=== PATIENT | female | born 1970 | race Caucasian/White ===

== ENCOUNTER 2020-04-02 13:50 | Outpatient (REF) | payer BC, SELFPAY ==
[2020-04-02 17:18] LABS: Anion Gap 12.3 mmol/L (3-11); BUN 14 mg/dL (7-18); CO2 24.7 mmol/L (21.0-32.0); CREATININE 0.64 mg/dL (0.55-1.02); Calcium 9.5 mg/dL (8.5-10.1); Calculated LDL 114 mg/dL (<100); Chloride 105 mmol/L (98-107); Cholesterol 178 mg/dL (<200); Glucose 87 mg/dL (74-106); HDL Cholesterol 51 mg/dL (40-60); Potassium 4.2 mmol/L (3.5-5.1); Sodium 142 mmol/L (136-145); Triglyceride 67 mg/dL (<150)
[2020-04-02 17:49] LABS: Hemoglobin A1C 5.3 % (3.8-5.6)
== END 2020-04-02 14:10 ==
LOC: NCHCN 13:50
PROVIDERS: PCP Nurse Practitioner Family; Visit Provider Family Medicine
DX: Z00.00 Encounter for general adult medical examination without abnormal findings (principal); Z13.1 Encounter for screening for diabetes mellitus; Z13.220 Encounter for screening for lipoid disorders; Z13.228 Encounter for screening for other metabolic disorders
CPT/HCPCS: 80048; 80061; 83036

== ENCOUNTER 2020-04-21 01:06 | Outpatient (CLI) | payer BC, SELFPAY ==
--- NOTE | 2020-04-21 06:30 | DI.CT_ITS ---
EXAM: CT ABDOMEN W CLINICAL HISTORY: Left upper quadrant pain,R10.12 TECHNIQUE: COMPARISON: CT ABD PELVIS WITH CONTRAST from 06/26/2012 FINDINGS: CT examination of the abdomen was performed with intravenous infusion of 100 cc of Omnipaque 350 and ingestion of dilute barium. Images obtained through the lung bases are unremarkable. There is incidental 23 millimeter left lobe hepatic cyst. Otherwise liver is normal appearance. Spl een appears normal. Small hiatal hernia noted. Abdominal aorta is of normal diameter and major visceral branches appear intact. No evidence of lymphadenopathy. No significant upper abdominal wall hernia, tiny fat containing umbi lical hernia noted. Appendix is partially visualized and appears normal. There is apparent wall thickening of the proxim al descending colon raising the possibility of colitis. Distal descending colon not included on the imaging field. Adrenals appear normal bilaterally. There is an extrarenal pelvis on the right. No hydronephrosis. No nephrolithiasis. No renal mass. IMPRESSION: Wall thickening of descending colon, concentric, suggestive of colitis. Descending colon not entirel y included on imaging field. RADIATION DOSE DELIVERED: 475.07mGy.cm Total DLP
[2020-04-21] MEDS: Omnipaque 350 MG/ML 50 ML BTL PO (07:51)
[2020-04-21] MEDS: Breeza Beverage 473 ML BTL PO (07:51)
[2020-04-21] MEDS: Omnipaque 350 MG/ML 100 ML BTL IV (09:20)
== END 2020-04-21 01:26 ==
PROVIDERS: PCP Family Medicine; Visit Provider Surgery
DX: R10.2 Pelvic and perineal pain (principal); K63.89 Other specified diseases of intestine
CPT/HCPCS: 74160; J3490; Q9967

== ENCOUNTER 2020-04-28 04:38 | Outpatient (CLI) | payer BC, SELFPAY ==
--- NOTE | 2020-04-28 07:50 | DI.MAMMO_ITS ---
EXAM: MG MAMMO SCREENING CLINICAL HISTORY: SCREENING, Z12.39 TECHNIQUE: Bilateral full field digital CC and MLO mammographic images were obtained with 3D tomosyn thesis and utilizing computer aided detection (CAD). COMPARISON: None. FINDINGS: Masses/Architectural Distortion: Scattered nodular densities are seen in the breasts. No suspicious masses or areas of architectural distortion are noted. Microcalcifications: No suspicious pleomorphic-type are seen. Skin Thickening/Nipple Retraction: None. IMPRESSION: 1. No specific features of malignancy noted. 2. Unless there is more urgent need, screening mammography is recommended, as per [employer] [place] [employer] guidelines. BI-RADS Category 1 - Negative Breast Density - Category C - Heterogeneously dense The mammogram demonstrates the patient's breast tissue is dense. Dense breast tissue is very common a nd is not abnormal but dense breast tissue can make it harder to find cancer on a mammogram. Also, de nse breast tissue may increase their breast cancer risk. This information about the result of the [facility] [place] mogram report was provided to the patient to raise their awareness. Use this report when you speak wi th the patient about their risks for breast cancer, which includes their family history. At that time , you may recommend for more screening tests (Ultrasound or MRI) as they might be useful based on the ir risk. A negative radiographic report should not delay biopsy if a dominant or clinically suspicious mass is present. Up to ten percent of cancers are not identified on mammography. A negative report may reinforce clinical impression. Adenosis and dense breasts may obscure an underlying neoplasm. False positive reports average 6 to 10%. Patient will receive a letter notifying them of these results.
== END 2020-04-28 04:58 ==
PROVIDERS: PCP Family Medicine; Visit Provider Family Medicine
DX: Z12.31 Encounter for screening mammogram for malignant neoplasm of breast (principal); R92.2 Inconclusive mammogram
CPT/HCPCS: 77063; 77067

== ENCOUNTER 2020-05-11 08:38 | Day surgery (SDC) | payer BC, SELFPAY ==
[2020-05-11 08:58] VITALS: BP 106/70; PULSE 72; RESP 20; TEMP 36.2; O2SAT 98
[2020-05-11] MEDS: Lactated Ringers 1,000 ML 80 ML IV (09:20)
[2020-05-11] MEDS: Sodium Citrate 30 ML CUP PO (10:21)
--- NOTE | 2020-05-11 10:21 | W.PM.HP.N ---
Date of service: 05/11/20 Time of Service: 10:22 Assessment and Plan Assessment and plan (1) LUQ pain: Status: Acute (2) Abnormal CT of the abdomen: Status: Acute Assessment and plan: I advised colonoscopy. The procedure was described including the risks of perforation with need for surgery or bleeding. Patient agrees to proceed. History of Present Illness Narrative: 6-7 months ago started to develop pain in LUQ. Worse with coughing/sneezing. Helps to push on the area. Resolves after about 15 minutes. Occurs at least once a day. Does not recall an injury. No nausea, feels bloated with a large meals. Eating does not worsen or improve the pain. No bloody or black stools. No diarrhea or constipation. No FH colon cancer. C section only abdominal surgery. EGD in 2016 showed gastritis/reflux esophagitis. Abdominal US in 2016 normal. No prior colonoscopy. CT scan showed thickening in the descending colon. Review of Systems All systems reviewed & are unremarkable except as noted in HPI and below PFSH Medical History Abdominal wall pain DJD (degenerative joint disease) of cervical spine GERD (gastroesophageal reflux disease) Hidradenitis History of nephrolithiasis pt. denies this Osteoarthritis Sebaceous cyst Tobacco use Surgical History section EGD - IV Sedation (05/15/16) History of vein stripping bilat legs Social History Smoking/Tobacco Use Status: Current every day Tobacco Type: cigarettes Tobacco: How many years used: 30 Alcohol Intake: current Alcohol Intake frequency: holidays/special occasions only Drug use: Never Substance use type: does not use Do you feel safe at home: Yes Do you feel safe in your relationship?: Yes Meds Home Medications and Allergies Home Medications Medication Instructions Recorded Confirmed Type clindamycin phosphate 1 % topical 1 applic TP BID 04/12/20 05/11/20 History solution esomeprazole magnesium 40 mg 40 mg PO DAILY 04/12/20 05/11/20 History capsule,delayed release famotidine 20 mg tablet 20 mg PO BID 04/12/20 05/11/20 History bisacodyl 5 mg tablet,delayed 5 mg PO ONCE #4 tab 04/22/20 05/11/20 Rx release polyethylene glycol 3350 17 238 g PO ONCE #238 gm 04/22/20 05/11/20 Rx gram/dose oral powder Allergies Allergy/AdvReac Type Severity Reaction Status Date / Time No Known Allergies Allergy Unverified 05/11/20 09:06 Exam Narrative Exam Narrative: No acute distress Lungs CTA Heart RRR Results Last Vital Signs Temp 97.2 F L 05/11/20 08:58 Pulse 72 05/11/20 08:58 Resp 20 05/11/20 08:58 BP 106/70 05/11/20 08:58 Pulse Ox 98 05/11/20 08:58 COVID-19 Screening Have you,or household,traveled outside [place] in last 14 days?: No Had IN PERSON contact w/suspected or confirmed C-19 person: No
--- NOTE | 2020-05-11 10:31 | W.PM.DSUDISC ---
Discharge Plan Disposition Patient Disposition: HOME Condition: Good Discharge Details Reason For Visit: Colonoscopy Attending Provider: Yarely Dyson Primary Care Provider: Isreal Chavarria Home Meds and New Rx's Prescriptions: Continued famotidine 20 mg tablet 20 mg PO BID RF: 0 clindamycin phosphate 1 % solution 1 applic TP BID RF: 0 esomeprazole magnesium 40 mg capsule,delayed release(DR/EC) 40 mg PO DAILY RF: 0 Discontinued polyethylene glycol 3350 17 gram/dose powder 238 g PO ONCE Qty: 238 RF: 0 bisacodyl [Dulcolax (bisacodyl)] 5 mg tablet,delayed release (DR/EC) 5 mg PO ONCE Qty: 4 RF: 0 Discharge Instructions Additional Instructions: Findings: Two tiny polyp were removed from the colon. My office will send a letter with biopsy results. No inflammation was seen in the colon but random biopsies were done. There is mild discoloration of the colon due to laxative use called melanosis coli. This is not something that needs treatment. Follow up: If the biopsy shows adenomatous polyps, you may need a colonoscopy in 5-7 years. Please call if you develop: fevers >101.5 Nausea or Vomiting Abdominal pain that is not transient DAY SURGERY UNIT POST COLONOSCOPY INSTRUCTIONS 1. Because there will be medication in your system for the next 24 hours, you may feel a little sleepy. Your coordination will be affected. Therefore: a. Do not drive or operate dangerous equipment for 24 hours. b. Do not drink alcohol beverages for 24 hours (not even beer). c. Plan to go home and rest for the day. 2. Generally there are no restrictions on your activity after a day or so has gone by, but you may feel a bit fatigued for a few days. 3 After you arrive home you may have a light meal and return to a normal diet as you can tolerate it without feeling sick to your stomach. 4. After surgery, you may feel pain or discomfort. This should be only transient, but if it persists please contact your doctor. 5. If there are any questions regarding the findings of your procedure, please feel free to contact your doctor. 6. If you are unable to contact your doctor with a problem, contact the hospital at [phone]. 7. Continue all your regular medications unless directed otherwise. I understand the above instructions and have no questions. Signature of Patient or Responsible Adult Escort Date/Time Name of Responsible Adult Escort Signature of Nurse Date/Time Activity:: Activity as Tolerated Diet:: As Tolerated Discharge Orders Discharge Orders: Discharge Order (Routine); Ordered 05/11/20 Ordered By: Yarely Dyson DS: Diagnosis Discharge Diagnosis (1) Polyp of ascending colon: Status: Acute (2) Melanosis coli: Status: Acute
--- NOTE | 2020-05-11 10:52 | BOWEL_PTH ---
PATIENT: Alexa Pierre LOC: [facility] U#:[id number] AGE/SX: 49/F ROOM: RE05/11/[address]: Yarely Dyson MD : [id number] BED: DIS: 05/11/2020 SPEC #: [id number] RECD: 05/11/20 12:42 STATUS: MACY REQ #: [id number] MARVIN: 05/11/20 10:[address]: Yarely Dyson DEPT: Surgical Specimen RECD BY: Tasia Slaughter ENTERED: 05/11/20 12:43 SP TYPE: Bowel OTHR DR: Isreal Chavarria Tissues: 1 - BIOPSY BOWEL 2 - BIOPSY BOWEL Procedures: GROSS AND MICRO LEVEL 4 Comments: [id number]
[2020-05-11 11:46] VITALS: BP 118/73; PULSE 64; RESP 17; TEMP 36.3; O2SAT 100
--- NOTE | 2020-05-11 20:24 | W.COLOREPORT ---
Colonoscopy Report Date of procedure: 05/11/20 Pre-op diagnosis general: Abnormal CT abdomen Post-op diagnosis procedure note: other (Ascending colon polyps, melanosis coli) Procedure: Colonoscopy with cold forceps polypectomy and biopsies Surgeon: Yarely Dyson Indications: This 49 year old woman presented with LUQ pain. CT showed possible thickening of the descending colon. She has not had a prior colonoscopy. No FH colon cancer. Procedure Description: The patient was placed in the left [place] position. Propofol was titrated to sedation. Digital rectal examination revealed no abnormalities. The scope was advanced to the cecum without difficulty. The ileocecal valve and appendiceal orifice were clearly identified. The prep was good. She was noted to have mild melanosis coli. The scope was slowly withdrawn over the course of greater than 6 minutes. Two diminuitive polyps were removed from the ascending colon with the cold forceps and sent together in the same specimen container. No abnormalities were seen in the transverse, descending, sigmoid colon or rectum including on retroflexed view. The descending colon appeared normal. Random biopsies were taken from this region. The patient tolerated the procedure well and was stable to recovery. If the polyp is adenomatous, she will need colonoscopy in 5-7 years.
== END 2020-05-11 12:02 | disposition home or self-care (01) ==
PROVIDERS: PCP Family Medicine; Visit Provider Surgery
PROC: 0DJD8ZZ Inspection of Lower Intestinal Tract, Via Natural or Artificial Opening Endoscopic (ICD-10-PCS; CPT 45378; principal; 2020-05-11 09:45)
DX: R93.5 Abnormal findings on diagnostic imaging of other abdominal regions, including retroperitoneum (principal); R10.12 Left upper quadrant pain; D12.2 Benign neoplasm of ascending colon
CPT/HCPCS: 45380; 88305; NC

== ENCOUNTER 2020-09-07 14:26 | Outpatient (CLI) | payer OTHER, BC, SELFPAY ==
--- NOTE | 2020-09-07 10:52 | DI.RAD_ITS ---
EXAM: XR KNEE RT 3V AP,LAT,QUANG CLINICAL HISTORY: RT KNEE PAIN, M25.561. TECHNIQUE: 2D digital imaging was performed. COMPARISON: CR LEFT KNEE 4+ VIEWS from 10/22/2012 FINDINGS: BONES: No acute fracture is present. No bony destructive lesion is seen. JOINTS: The knee is normally aligned. No joint effusion is seen. SOFT TISSUE: Venous varicosities. IMPRESSION: Unremarkable radiographs of the right knee. DATA REPOSITORY: RADIATION DOSE DELIVERED:
== END 2020-09-07 14:46 ==
PROVIDERS: PCP Family Medicine; Visit Provider Family Medicine
DX: M25.561 Pain in right knee (principal)
CPT/HCPCS: 73562

== ENCOUNTER 2020-09-30 00:32 | Outpatient (CLI) | payer OTHER, BC, SELFPAY ==
--- NOTE | 2020-09-30 | DI.MRI_ITS ---
EXAM: MR LOWER JOINT RT WO CLINICAL HISTORY: RT KNEE PAIN, M25.561,LIMITED RANGE OF MOTION,S/P FALL,ASYMMETRIC LAXITY,?. TECHNIQUE: Multiplanar multisequence MRI was performed. COMPARISON: CR XR KNEE RT 3V AP,LAT,QUANG from 09/07/2020 FINDINGS: The examination is limited due to patient motion artifact. BONES: There is no fracture or contusion pattern. JOINTS: Articular cartilage is unremarkable. There is a moderate joint effusion. TENDONS: Extensor mechanism: Unremarkable. Medial retinaculum: Unremarkable. Lateral retinaculum: Unremarkable. Popliteus: Unremarkable. MUSCLES: Unremarkable. MENISCI: There is a tear of the body and posterior horn of the medial meniscus. The lateral meniscus is unremarkable. SOFT TISSUES: Unremarkable. LIGAMENTS: Anterior Cruciate: Unremarkable. Posterior Cruciate: Unremarkable. Medial Collateral:There is fluid around the medial collateral ligament which may represent a grade 1 sprain. Lateral Collateral: Unremarkable. OTHER: Varices are seen in the soft tissues medially. There is a 1.4 AP by 4 cc by 1.4 transverse po pliteal cyst. IMPRESSION: 1. There is a tear of the body and posterior horn of the medial meniscus. 2. Grade 1 sprain of the MCL. 3. Moderate joint effusion and popliteal cyst. DATA REPOSITORY:
== END 2020-09-30 00:33 | disposition home or self-care (01) ==
LOC: DI 00:32
PROVIDERS: PCP Family Medicine; Visit Provider Family Medicine
DX: S83.241A Other tear of medial meniscus, current injury, right knee, initial encounter (principal); M25.461 Effusion, right knee; S83.411A Sprain of medial collateral ligament of right knee, initial encounter
CPT/HCPCS: 73721

== ENCOUNTER 2020-12-29 04:12 | Outpatient (CLI) | payer BC, SELFPAY ==
[2020-12-29 17:14] LABS: Source Nasal/Nares
[2020-12-29 21:26] LABS: COVID-19 PCR Negative (Negative)
== END 2020-12-29 04:13 | disposition home or self-care (01) ==
LOC: LBO 04:12
PROVIDERS: PCP Family Medicine; Visit Provider Student in an Organized Health Care Education/Training Program
DX: Z20.822 Contact with and (suspected) exposure to COVID-19 (principal); Z01.818 Encounter for other preprocedural examination
CPT/HCPCS: 87635

== ENCOUNTER 2020-12-31 06:13 | Day surgery (SDC) | payer OTHER, SELFPAY ==
[2020-12-31] VITALS (8 sets, daily range): BP systolic 111–136; BP diastolic 64–78; PULSE 52–82; RESP 13–17; TEMP 36–36.4; O2SAT 42–98; BMI 33.9
[2020-12-31] MEDS: Lactated Ringers 1,000 ML 100 ML IV (06:41)
--- NOTE | 2020-12-31 07:06 | W.ANESPRE ---
General Info Date of Service Date Performed: 12/31/20 Height: 5 ft 1 in Weight: 81.5 kg Body Mass Index (BMI): 33.9 Surgical Procedure: Operation Date: 12/31/20 07:40 Proposed Procedures Side Surgeon p Knee Arthroscopy WITH ANY INDICATED MENISCAL, CHONDRAL AND SYNOVIAL SURGERY Right Zane Ricci MD Meds Allergies and Home Medications Allergies Allergy/AdvReac Type Severity Reaction Status Date / Time No Known Allergies Allergy Unverified 12/31/20 06:25 Home Medication Medication Instructions Recorded clindamycin phosphate 1 % topical 1 applic TP BID 04/12/20 solution esomeprazole magnesium 40 mg 40 mg PO DAILY 04/12/20 capsule,delayed release famotidine 20 mg tablet 20 mg PO BID 04/12/20 Current Visit Medications: Current Medications Generic Name Dose Route Start Last Admin Trade Name Freq PRN Reason Stop Dose Admin Ringer's Solution 1,000 mls @ 100 mls/hr 12/31/20 06:00 12/31/20 06:41 IV 01/29/21 23:59 100 mls/hr INFUSION GENARO Administration Cefazolin Sodium/Dextrose 2 gm in 50 mls @ 100 mls/hr 12/31/20 06:00 Ancef Duplex IVPB 01/29/21 23:59 PREOP GENARO IV Miscellaneous Supplies 1 each 12/31/20 06:00 Iv Access IV 01/29/21 23:59 DIRECTED GENARO Sodium Chloride 0 ml 12/31/20 06:00 Normal Saline Flush 10 Ml Syr IV 01/29/21 23:59 PRN PRN Sodium Chloride 0 ml 12/31/20 06:00 Normal Saline 10 Ml Vial IJ 01/29/21 23:59 DIRECTED PRN Sterile Water 0 ml 12/31/20 06:00 Water,Injection,Sterile 10 Ml Vial IJ 01/29/21 23:59 DIRECTED PRN PFSH Active Problems Active Problems: Problem Status Onset Code LUQ pain R10.[address] of the abdomen R93.5 Polyp of ascending colon K63.5 Melanosis coli K63.89 Acute medial meniscal injury of right knee 08/17/20 S83.8X1A Stiffness of right knee M25.661 Tobacco use Z72.0 DJD (degenerative joint disease) of cervical spine M47.812 Osteoarthritis M19.90 GERD (gastroesophageal reflux disease) K21.9 History of nephrolithiasis Z87.442 Sebaceous cyst L72.3 Abdominal wall pain R10.9 Hidradenitis L73.2 Medical History Medical History Abdominal wall pain DJD (degenerative joint disease) of cervical spine GERD (gastroesophageal reflux disease) Hidradenitis History of nephrolithiasis Osteoarthritis Sebaceous cyst Tobacco use Surgical History Surgical History section EGD - IV Sedation (05/15/16) History of vein stripping bilat legs Tobacco Smoking/Tobacco Use Status: Current every day Tobacco Type: cigarettes Smoking cigarettes per day: 8 Tobacco: How many years used: 30 Alcohol Alcohol Intake: current Alcohol intake frequency: holidays/special occasions only Substance Use Substance use: Never Substance use type: does not use Vital Signs and Lab Results Vital Signs Most Recent Vital Signs in EMR: Most Recent Vital Signs Temp Pulse Resp BP Pulse Ox 36.4 C L 82 17 121/75 98 12/31/20 06:20 12/31/20 06:20 12/31/20 06:20 12/31/20 06:20 12/31/20 06:20 Lab Results Blood Type / Crossmatch: No Data to Display Complete Blood Count: White Blood Count 14.01 k/cumm (4.4-10.8) H 06/26/12 11:35 06/26/12 Red Blood Count 4.92 m/cumm (4.00-5.20) 06/26/12 11:35 06/26/12 Hemoglobin 14.8 g/dL (12.0-15.5) 06/26/12 11:35 06/26/12 Hematocrit 43.9 % (36.0-46.0) 06/26/12 11:35 06/26/12 Platelet Count 434 x1000/uL (130-400) H 06/26/12 11:35 06/26/12 Complete Metabolic Panel: Sodium Level 142 mmol/L (136-145) 04/02/20 13:00 04/02/20 Potassium Level 4.2 mmol/L (3.5-5.1) 04/02/20 13:00 04/02/20 Chloride Level 105 mmol/L (98-107) 04/02/20 13:00 08/07/20 Carbon Dioxide Level 24.7 mmol/L (21.0-32.0) 04/02/20 13:00 04/02/20 Blood Urea Nitrogen 14 mg/dL (7-18) 04/02/20 13:00 04/02/20 Creatinine 0.64 mg/dL (0.55-1.02) 04/02/20 13:00 04/02/20 Calcium Level 9.5 mg/dL (8.5-10.1) 04/02/20 13:00 04/02/20 Albumin 4.1 g/dL (3.4-5.0) 06/26/12 11:35 06/26/12 Glucose Level 87 mg/dL (74-106) 04/02/20 13:00 04/02/20 Hemoglobin A1c 5.3 % (3.8-5.6) 04/02/20 13:00 04/02/20 Liver Function Panel: Alanine Aminotransferase (ALT/SGPT) 15 U/L (12-78) 06/26/12 11:35 06/26/12 Aspartate Amino Transf (AST/SGOT) 10 U/L (15-37) L 06/26/12 11:35 06/26/12 Coagulation Panel: No Data to Display Cardiac Panel: No Data to Display Arterial Blood Gas: No Data to Display Venous Blood Gas: No Data to Display Pancreas Panel: Amylase Level 49 U/L (25-115) 06/26/12 11:35 06/26/12 Lipase 117 U/L (114-286) 06/26/12 11:35 06/26/12 Thyroid Panel: Thyroid Stimulating Hormone (TSH) 1.34 uIU/mL (0.36-3.74) 04/03/11 09:47 04/03/11 Infectious Disease: Coronavirus (COVID-19)(PCR) Negative (Negative) 12/29/20 11:13 12/29/20 Coronavirus 2019 Source Nasal/nares 12/29/20 11:13 12/29/20 Blood Cultures: No Data to Display Toxicology Panel: No Data to Display Panel: No Data to Display Anesthesia Assessment and Plan Anesthesia History Personal History: No History of Anesthesia Complications Family History: No Family History of Anesthesia Complications Exercise Tolerance Exercise Tolerance: Metabolic Equivalents>4 Cardiac & Pulmonary Exam Cardiac Exam: Normal S1/S2 Heart Sounds Pulmonary Exam: Clear Bilateral Breath Sounds Airway Exam Known Difficult Airway: No Mallampati Class: 2 Mouth Opening: Normal (> 3cm) Thyromental Distance: Greater than 3 cm Neck Range of Motion: Full ROM Neck Circumference: Normal Teeth Condition: Normal Dentition ASA Classification ASA Score: ASA 2 Emergency Case?: No NPO Status NPO Status: NPO Clears >2 hours, Solids >8 hours Status Status: Not Relevant due to Medical History Anesthesia Plan Anesthesia Technique: General Anesthesia Airway Planned: LMA Monitors Used: Standard Monitors
[2020-12-31] MEDS: ceFAZolin 2 GM/50 ML BAG IVPB (07:30)
[2020-12-31] MEDS: EPINEPHrine 30 MG/30 ML VIAL (08:07)
--- NOTE | 2020-12-31 09:12 | PDOC.DSDIS_ITS ---
Discharge Plan Disposition Patient Disposition: HOME Condition: Stable Discharge Details Reason For Visit: Right knee surgery Attending Provider: Zane Ricci Primary Care Provider: Isreal Chavarria Home Meds and New Rx's Prescriptions: New naproxen 250 mg tablet 250 - 500 mg PO BID PRN (Reason: Moderate pain or swelling) Qty: 60 RF: 0 aspirin 81 mg tablet,delayed release (DR/EC) 81 mg PO DAILY 30 Days Qty: 30 RF: 0 oxycodone 5 mg tablet 5 - 10 mg PO Q4H PRN (Reason: moderate to severe pain) Qty: 16 RF: 0 Continued famotidine 20 mg tablet 20 mg PO BID RF: 0 clindamycin phosphate 1 % solution 1 applic TP BID RF: 0 esomeprazole magnesium 40 mg capsule,delayed release(DR/EC) 40 mg PO DAILY RF: 0 Discharge Instructions Additional Instructions: Surgery: Knee arthroscopy with partial medial meniscectomy and synovectomy Activity: Weightbearing as tolerated. Advance range of motion as comfort allows. No knee brace or crutches needed. Recommend avoiding cutting, pivoting, or squatting for 6-8 weeks. A physical therapy prescription will be sent electronically to start in about 2. Prescriptions: Aspirin 81 mg take 1 daily to prevent a blood clot for 30 days Naproxen 250 mg take 1-2 every 12 hours with a meal as needed for moderate pain Oxycodone 5 mg take 1-2 every 4-6 hours as needed for severe pain You may use [id number] Tylenol (acetaminophen) as needed for mild pain. These pain medications may be taken all at once or in different combinations as needed. Also, recommend Colace (docusate) as a stool softener as surgery and pain medicine cause constipation. Dressings: Leave dressing in place for 2-3 days. May then remove and leave open to air or cover incisions with Band-Aids. May shower after 5 days. Follow-up: 10-[address] Ricci Let us know right away if you develop any redness, drainage, fevers, chest pain, or trouble breathing. Do not drink alcohol or drive for at least 24 hours after anesthesia. Please call the office during business hours with any questions or concerns. Referrals: Zane Ricci MD [ [facility] STAFF PHYSICIAN] - Discharge Orders Discharge Orders: Discharge Order (Routine); Ordered 12/31/20 Ordered By: Zane Ricci DS: Diagnosis Discharge Diagnosis (1) Stiffness of right knee: Status: Acute (2) Acute medial meniscal injury of right knee: Status: Acute
--- NOTE | 2020-12-31 09:23 | ROE_ITS ---
Date of service: 12/31/20 Time of Service: 08:00 Operative Note Operative Note DATE OF PROCEDURE: 12/31/20 PRE-OP DIAGNOSIS: Right knee 1. Medial meniscus tear 2. Stiffness POST-OP DIAGNOSIS: other Right knee 1. Medial meniscus tear 2. Synovitis: Patellofemoral adhesions and medial gutter plica 3. Chondromalacia: Medial femoral condyle PROCEDURE: Right knee 1. Partial medial meniscectomy, CPT #03601 2. Greater than 2 compartment synovectomy, CPT #48237: Anteromedial, anterolateral, intercondylar, patellofemoral including lysis of suprapatellar pouch adhesions and excision of medial gutter plica SURGEON: Zane Ricci LOAN SERVICES PROFESSIONAL: None None ANESTHESIA TYPE: Local By Surgeon and General LMA/ETT Refer to Anesthesia Record ESTIMATED BLOOD LOSS: 5 PATHOLOGY: none sent TOURNIQUET TIME: 0 COMPLICATIONS: None Patient was transported to: PACU Patient's condition: stable Implants: None Indications: Please see complete medical record for details. Findings: Exam under anesthesia: Full symmetrical range of motion, no contracture, no instability Arthroscopic findings: Significant anterior, intercondylar, and patellofemoral synovitis with limited adhesions in the suprapatellar pouch and medial gutter synovial thickening/plica. Distal medial femoral condyle cartilage thinning and bruising grade 1?2 about medial plica. Somewhat generalized posterior medial femoral condyle cartilage irregularity and fraying grade 2?3, worst near the zone of meniscal tear injury. Otherwise relatively preserved intact tibial, and remainder of knee articular cartilage. Intact ACL and PCL. No lateral meniscus tear. Significant near?full-thickness radial posterior horn medial meniscal body junction tear, as expected, with horizontal degenerative?type extension through the posterior horn. Stable root. Procedure Description: In the operating room, genral anesthesia was induced. The patient was positioned supine on the operating room table. All bony prominences were well-padded. Preoperative antibiotics were administered. The knee was prepped and draped in the usual sterile fashion. The correct patient, procedure, and side of the procedure were all verified prior to incision. Exam under anesthesia was performed. 10 cc of 1% lidocaine containing epinephrine was infiltrated about the planned anteromedial and anterolateral knee arthroscopy portals. The portals were established and a complete diagnostic arthroscopy was performed with relevant findings detailed above. The mechanical shaver was used to remove pathologic synovium from the anteromedial, anterolateral, and patellofemoral compartments. This synovectomy included excision of the medial gutter plical band with power shaver as well as a removal of ana maría-patellar suprapatellar pouch adhesions using meniscal biters and power shaver. Using a combination of hand instruments including meniscal biters and the power shaver and working through the anteromedial and anterolateral compartments the meniscus was debrided of all torn tissue to a stable margin. Care was taken to preserve as much meniscus tissue was possible. The radial component was largely full-thickness to the capsule with a small intact inferior peripheral segment. The posterior horn horizontal component was debrided to a stable peripheral capsular margin. The radial aspect was contoured into the anterior aspect of the meniscal body. The meniscal remnant was probed and found to have a stable margin, stable root, and no other tears. The medial femoral condyle had moderate generalized fraying and irregularity posteriorly about the meniscal tear region, which was smoothed to a more regular contour with the mechanical shaver taking care to remove as little cartilage as possible. Under direct arthroscopic visualization an 18-gauge needle was passed into the knee from superolateral into the suprapatellar pouch. The knee was copiously irrigated with arthroscopic fluid until there was a clear effluent before being drained of all fluid. The anteromedial and anterolateral portals were closed in 3-0 Monocryl in a buried interrupted fashion. 20 cc of 1% lidocaine with epi nephrine containing 4 mg of morphine was infiltrated into the knee through the previously placed needle. Mastisol, Steri-Strips, and 4 x 4 gauze were applied over the incisions followed by sterile soft roll. The knee was then wrapped gently with an SHAYE comressive bandage. The patient awoke from anesthesia without complication and was transferred to the recovery room in a stable condition.
--- NOTE | 2020-12-31 10:15 | W.ANESPOSTOP ---
Postoperative Evaluation Date, Time and Location Date Performed: 12/31/20 Time Performed: 10:15 Patient Location: Day Surgery Unit Vital Signs Most Recent Imported Vital Signs: Most Recent Vital Signs Temp Pulse Resp BP Pulse Ox 36.3 C L 67 16 125/65 98 12/31/20 09:49 12/31/20 09:49 12/31/20 09:49 12/31/20 09:49 12/31/20 09:49 Pain Score Most Recent Pain Score: Most Recent Pain Score Pain Level 0 12/31/20 09:49 Assessment Mental Status: Awake (Alert & Oriented to Patient Baseline) Airway and Respiratory Function: Patent airway with normal (patient baseline) respiratory exam Cardiovascular Function: Hemodynamically Stable Hydration Status: Adequately Hydrated Nausea & Vomiting: No Nausea or Vomiting Pain: Pt. Denies Any Pain Peripheral Nerve Block: Patient did not receive a nerve block
== END 2020-12-31 10:58 | disposition home or self-care (01) ==
PROVIDERS: PCP Family Medicine; Visit Provider Student in an Organized Health Care Education/Training Program
PROC: (CPT 29870; principal; 2020-12-31 07:30)
DX: M23.221 Derangement of posterior horn of medial meniscus due to old tear or injury, right knee (principal); M25.661 Stiffness of right knee, not elsewhere classified; M94.261 Chondromalacia, right knee; M65.861 Other synovitis and tenosynovitis, right lower leg; M23.8X1 Other internal derangements of right knee
CPT/HCPCS: 29876; 29881; J0690; J1100; J1885; J2001; J2250; J2405

== ENCOUNTER 2023-01-23 12:33 | Outpatient (REF) | payer OTHER, SELFPAY ==
--- NOTE | 2023-01-23 09:30 | PAPFT_PTH ---
PATIENT: Alexa Pierre LOC: [facility]#:[id number] AGE/SX: 52/F ROOM: RE01/23/[address]: Isreal Chavarria : 1970 BED: DIS: 01/23/2023 SPEC #: [id number] RECD: 01/23/23 17:03 STATUS: MACY REKadie #: [id number] MARVIN: 01/23/23 09:[address]: Isreal Chavarria DEPT: [facility] Cytology RECD BY: Tasia Slaughter Tissues: 1 - CX/ENDOCX FOR PAP SMEARS Procedures: PAP THIN PREP/UVM Screening HPV DNA PROBE Comments: [id number]
[2023-01-23 15:54] LABS: Hemoglobin A1C 5.4 % (<5.7)
[2023-01-23 16:21] LABS: Calculated LDL 118 mg/dL (<100); Cholesterol 189 mg/dL (<200); HDL Cholesterol 56 mg/dL (40-60); Triglyceride 75 mg/dL (<150)
[2023-01-24 09:36] LABS: Hepatitis C Ab w Rflx HCV PCR Negative (Negative)
== END 2023-01-23 12:34 | disposition home or self-care (01) ==
LOC: NCHCN 12:33
PROVIDERS: PCP Family Medicine; Visit Provider Family Medicine
DX: Z00.00 Encounter for general adult medical examination without abnormal findings (principal); Z11.59 Encounter for screening for other viral diseases; Z12.4 Encounter for screening for malignant neoplasm of cervix; Z13.1 Encounter for screening for diabetes mellitus; Z13.220 Encounter for screening for lipoid disorders; Z11.51 Encounter for screening for human papillomavirus (HPV)
CPT/HCPCS: 80061; 86803; 88142; 83036; 87624

== ENCOUNTER → 2023-06-08 02:43 | Outpatient (CLI) | payer OTHER, SELFPAY ==
--- NOTE | 2023-06-08 08:55 | DI.MAMMO_ITS ---
Exam(s) MAMMO SCREENING EXAM: MAMMO SCREENING CLINICAL HISTORY: SCREENING EXAM FOR BREAST CANCER Z12.39 TECHNIQUE: Mammograms were interpreted according to the usual protocol including computer analysis w [employer] CAD system, tomosynthesis and C-view imaging. COMPARISON: 2019 FINDINGS: The breasts are composed of heterogeneously dense fibroglandular densities, Breast Density category C . No suspicious masses or suspicious microcalcifications are seen. No skin thickening or abnormal axillary lymph nodes are seen. There has been no significant change from prior exam. IMPRESSION: BI-RADS Category 1, Negative mammogram. Yearly screening mammography is recommended. Breast Density Category C, heterogeneously Dense. The mammogram demonstrates the patient's breast tissue is dense. Dense breast tissue is very common a nd is not abnormal but dense breast tissue can make it harder to find cancer on a mammogram. Also, de nse breast tissue may increase breast cancer risk. This information about the result of the mammogram report was provided to the patient to raise their awareness. Use this report when you speak with the patient about their risks for breast cancer, which includes their family history. At that time, you may recommend additional screening tests (Ultrasound or MRI) as they might be useful based on their r isk. A negative radiographic report should not delay biopsy if a dominant or clinically suspicious mass is present. Up to ten percent of cancers are not identified on mammography. A negative report may reinforce clinical impression. Adenosis and dense breasts may obscure an underlying neoplasm. False positive reports average 6 to 10%.
== END ==
PROVIDERS: PCP Family Medicine; Visit Provider Family Medicine
DX: Z12.31 Encounter for screening mammogram for malignant neoplasm of breast (principal); R92.333 Mammographic heterogeneous density, bilateral breasts
CPT/HCPCS: 77063; 77067

== ENCOUNTER 2023-11-30 18:09 | Outpatient (REF) | payer OTHER, SELFPAY | END 2023-11-30 18:10 | disposition home or self-care (01) | LOC: LBN 18:09 | PROVIDERS: PCP Family Medicine; Visit Provider Physician Assistant | DX: N39.0 Urinary tract infection, site not specified (principal) | CPT/HCPCS: 87086 ==

== ENCOUNTER 2024-03-11 16:19 | Outpatient (REF) | payer OTHER, SELFPAY ==
--- OUTSIDE RECORDS SUMMARY | 2024-03-11 16:22 | XMS_ITS | Clinical Summary ---
[place] [address] Care Team Providers Care Exec. Creative Director Name Role Phone Isreal Hebert MD Primary Care Provider Social History Tobacco Use Types Packs/Day Years Used Date Smoking Tobacco: Never Assessed Sex and Gender Information Value Date Recorded Sex Assigned at Not on file Gender Identity Not on file Sexual Orientation Not on file Plan of Treatment Health Maintenance Due Date Last Done Comments CT Colonography 1970 Colonoscopy 1970 Colorectal Cancer Screening 1970 FIT DNA 1970 FIT 1970 Sigmoidoscopy (10 year) with FIT yearly 1968 Sigmoidoscopy 1970 HIV screen 1986 Hepatitis C Screening 1986 Hepatitis B vaccine (0-59 yrs) (1) 1987 Tdap adult 1987 Tetanus vaccine 1987 HPV test 1998 PAP Smear 1998 Breast Cancer Share Decision Needed 2008 Breast Cancer screening 2008 Zoster vaccine (1 of 2) 2018 Covid-19 Vaccine ( - 2022-24 season) 2023 Advance Directive 2023 Influenza (Flu) vaccine (1 o f 1 - Influenza standard series) 04/27/2024 Care Teams Exec. Creative Director Relationship Specialty Start Date End Date Isreal Hebert MD [address] [place] [address] [place] [address] PCP - General 12/16/18
--- OUTSIDE RECORDS SUMMARY | 2024-03-11 16:22 | XMS_ITS | Encounter Summary ---
Author Organization [facility] Address [address] [place] [address] Care Team Providers Care Pitch Filler Name Role Phone Isreal Chavarria MD Primary Care Provider [phone] Encounter Details Date Type Department Care Team (Late st Contact Info) Description 05/26/2020 Lab Requisition [facility] Pathology & Laboratory Medicine - [address] [address] Awilda Denton MD [address] [place] [id number] Encounter for screening for other viral diseases Social History Tobacco Use Types Packs/Day Years Used Date Smoking Tobacco: Never Assessed Interpersonal Safety Answer Date Record ed Physically Hurt Never 05/17/2020 Verbally Threaten Not on file 05/17/2020 Sex and Gender Information Value Date Recorded Sex Assigned at Not on file Gender Identity Not on file Sexual Orientation Not on file documented as of this encounter Plan of Treatment Not on file documented as of this encounter Procedures Procedure Name Priority Date/Time Associated Diagnosis Comments DO NOT ORDER STANDALONE - BROAD COVID TEST Today 05/25/2020 7:05 EDT Encounter for screening for other viral diseases COVID-19 TESTING Today 05/25/2020 7:05 EDT Encounter for screening for other viral diseases documented in this encounter Results * DO NOT ORDER STANDALONE - BROAD COVID TEST (05/25/2020 7:05 EDT) COVID-19 rt-PCR Result NEGATIVE Negative 05/27/2020 15:09 [facility] Comment: 2019-novel Coronavirus (2019-nCoV) not detected by the qRT-PCR assay. Consider testing for other respiratory viruses or re-collecting for 2019-nCoV testing. Note: Optimum timing for peak viral levels during infections caused by 2019-nCoV have not been determined. Collection of multiple specimens from the same patient may be necessary to detect the virus. Limitations Positive results are indicative of active infection with SARS-CoV-2 but do not rule out bacterial infection or co-infection with other viruses. The agent detected may not be the definite cause of disease. In addition, detection of viral RNA may not indicate the presence of infectious virus or that SARS-CoV-2 is the causative agent for clinical symptoms. Negative results do not preclude SARS-CoV-2 infection and should not be used as the sole basis for patient management decisions. Negative results must be combined with clinical observations, patient history, and epidemiological information. False negative results may also occur if amplification inhibitors are present in the specimen or if inadequate numbers of organisms are present in the specimen. Optimum specimen types and timing for peak viral levels during infections caused by SARS-CoV-2 have not been fully determined. Collection of multiple specimens (types and time points) from the same patient may be necessary to detect the virus. The test was validated for use with upper respiratory specimens obtained via nasopharyngeal or oropharyngeal swabs in VTM, UTM, M4, M5, M6, saline, and MTM media. The performance of this test has not been established for other specimens. Specimens collected using other FDA recommended Specimen Collection Materials listed in the FDA COVID-19 Diagnostic Technologies communication (November 20, 2019) are processed with the caveat that they were not all validated for use with this test and the result must be interpreted in this context. Furthermore, a false negative results may occur if a specimen is improperly collected, transported or handled. If the virus mutates in the RT-PCR target region, SARS-CoV-2 may not be detected or may be detected less predictably. Inhibitors or other types of interference may produce a false negative result. An interference study evaluating the effect of common cold medications was not performed. This test is not FDA-cleared but its performance characteristics were established by our CLIA-certified, CAP-accredited, high complexity laboratory in accordance with CLIA regulations, [employer] [place] (CAP) guidelines (Nov 13, 2019), and FDA guidance (Oct 25, 2019). This test is only for use under the Food and Drug Administration's Emergency Use Authorization. Swab ENTIRE NASOPHARYNX / Unknown 05/25/2020 7:05 EDT 05/26/2020 9:13 EDT Awilda Denton MD MICROBIOLOGY - GENER AL ORDERABLES [facility] [place], [place] * COVID-19 TESTING (05/25/2020 7:05 EDT) [facility] COVID-19 rt-PCR Result NEGATIVE Negative 05/27/2020 17:17 EDT [facility] Comment: 2019-novel Coronavirus (2019-nCoV) not detected by the qRT-PCR assay. Consider testing for other respiratory viruses or re-collecting for 2019-nCoV testing. Note: Optimum timing for peak viral levels during infections caused by 2019-nCoV have not been determined. Collection of multiple specimens from the same patient may be necessary to detect the virus. Limitations Positive results are indicative of active infection with SARS-CoV-2 but do not rule out bacterial infection or co-infection with other viruses. The agent detected may not be the definite cause of disease. In addition, detection of viral RNA may not indicate the presence of infectious virus or that SARS-CoV-2 is the causative agent for clinical symptoms. Negative results do not preclude SARS-CoV-2 infection and should not be used as the sole basis for patient management decisions. Negative results must be combined with clinical observations, patient history, and epidemiological information. False negative results may also occur if amplification inhibitors are present in the specimen or if inadequate numbers of organisms are present in the specimen. Optimum specimen types and timing for peak viral levels during infections caused by SARS-CoV-2 have not been fully determined. Collection of multiple specimens (types and time points) from the same patient may be necessary to detect the virus. The test was validated for use with upper respiratory specimens obtained via nasopharyngeal or oropharyngeal swabs in VTM, UTM, M4, M5, M6, saline, and MTM media. The performance of this test has not been established for other specimens. Specimens collected using other FDA recommended Specimen Collection Materials listed in the FDA COVID-19 [employer] communication (November 20, 2019) are processed with the caveat that they were not all validated for use with this test and the result must be interpreted in this context. Furthermore, a false negative results may occur if a specimen is improperly collected, transported or handled. If the virus mutates in the RT-PCR target region, SARS-CoV-2 may not be detected or may be detected less predictably. Inhibitors or other types of interference may produce a false negative result. An interference study evaluating the effect of common cold medications was not performed. This test is not FDA-cleared but its performance characteristics were established by our CLIA-certified, CAP-accredited, high complexity laboratory in accordance with CLIA regulations, [employer] [place] [employer] (CAP) guidelines (Nov 13, 2019), and FDA guidance (Oct 25, 2019). This test is only for use under the Food and Drug Administration's Emergency Use Authorization. Performing Lab [facility] 05/27/2020 17:17 EDT [facility] Swab 05/25/2020 7:05 EDT 05/26/2020 9:13 EDT Awilda Denton MD MICROBIOLOGY - GENER AL ORDERABLES [facility] [address] [place] [address] [facility] [place], [place] documented in this encounter Visit Diagnoses Diagnosis Encounter for screening for other viral diseases documented in this encounter Care Teams Pitch Filler Relationship Specialty Start Date End Date Isreal Chavarria MD [address] [place] [address] PCP - General 05/11/20 documented as of this encounter
--- OUTSIDE RECORDS SUMMARY | 2024-03-11 16:22 | XMS_ITS | Encounter Summary ---
Author Organization [facility] Address [address] [place] [address] Care Team Providers Care Surface Grinder Tender Name Role Phone Unavailable Primary Care Provider Unavailabl e Encounter Details Date Type Department Care Team (Late st Contact Info) Description 06/02/2003 Results Only [facility] [address] [place] [address] Luli Contreras MD [address] [place] [address] Social History Tobacco Use Types Packs/Day Years Used Date Smoking Tobacco: Never Assessed Sex and Gender Information Value Date Recorded Sex Assigned at Not on file Gender Identity Not on file Sexual Orientation Not on file documented as of this encounter Plan of Treatment Not on file documented as of this encounter Procedures Procedure Name Priority Date/Time Associated Diagnosis Comments CYTOPATHOLOGY Routine 06/02/2003 0:00 EDT documented in this encounter Results * CYTOPATHOLOGY (06/02/2003 0:00 EDT) Pathology Report: CYTOPATHOLOGY REPORT Reports generated via electronic interface contain original data; however they are lacking the format of the original report. Caution should be taken when reading/interpreti ng unformatted reports. Name: ? ALEXA PIERRE ? Accession #: ? [id number] : ? 1970 (Age: 32) ??F ?Collect Date: ? 06/02/2003 Location: ? [facility] ? Receive Date: ? 06/04/2003 Provider: ?LULI CONTRERAS MD Copy to: ? Specimen/Source: ?ThinPrep Pap Test, Cervix/Endocervix Last Menstrual Period: ? 05/23/03 Other: ? HPVA - HPV testing requested if ASC-US on the current ThinPrep Pap test. ? SPECIMEN ADEQUACY ? Satisfactory for Evaluation - transformation zone component absent GENERAL CATEGORIZATION ? Negative for Intraepithelial Lesion or Malignancy ? Document reviewed and electronically signed by: ? GABRIEL Dillon(ASCP) ? Report Date: ??06/09/2003 11:48 End of Report [facility] 06/02/2003 06/04/2003 Luli Contreras MD PATHOLOGY ORDERABLES Performing Organization Address City/State/[facility] Co de Phone Number [facility] HAWK[facility] [address] [place] [address] documented in this encounter Visit Diagnoses Not on filedocumented in this encounter
--- OUTSIDE RECORDS SUMMARY | 2024-03-11 16:22 | XMS_ITS | Encounter Summary ---
Author Organization [facility] Address [address] [place] [address] Care Team Providers Care Customer Greeter Name Role Phone Unavailable Primary Care Provider Unavailabl e Encounter Details Date Type Department Care Team (Late st Contact Info) Description 04/03/[address] [facility] [phone] Gaudencio Herrmann MD [address] [place] [address] Social History Tobacco Use Types Packs/Day Years Used Date Smoking Tobacco: Never Assessed Sex and Gender Information Value Date Recorded Sex Assigned at Not on file Gender Identity Not on file Sexual Orientation Not on file documented as of this encounter Plan of Treatment Not on file documented as of this encounter Procedures Procedure Name Priority Date/Time Associated Diagnosis Comments PAP TEST- RESULT ONLY Routine 04/03/2011 0:00 EDT documented in this encounter Results * PAP TEST- RESULT ONLY (04/03/2011 0:00 EDT) Pathology Report: CYTOPATHOLOGY REPORT ? Reports generated via electronic interface contain original data; ? however they are lacking the format of the original report. ? Caution should be taken when reading/interpreti ng unformatted reports. ? Name: ? JANEYALEXA LOPEZ JO ? Accession #: ? [id number] ? : ? 1970 (Age: 40) ??F ?Collect Date: ? 04/03/2011 ? Location: ? [facility] ? Receive Date: ? 04/04/2011 ? Provider: ?GAUDENCIO HERRMANN MD ? Copy to: ? Specimen/Source: ?Pap Test, Cervix/Endocervix, ThinPrep Imaging System ? with manual evaluation ? Last Menstrual Period: ? 7/26/11 ? SPECIMEN ADEQUACY ? Satisfactory for Evaluation ? - transformation zone component present ? GENERAL CATEGORIZATION ? Negative for Intraepithelial Lesion or Malignancy ? Document reviewed and electronically signed by: ? Martha Lau, SCT(ASCP) ? Report Date: ??04/06/2011 11:39 ? End of Report ? [facility]WKINS 04/03/2011 04/04/2011 Gaudencio Herrmann MD PATHOLOGY ORDERABLES [facility] [address] [place] [address] documented in this encounter Visit Diagnoses Not on filedocumented in this encounter
--- OUTSIDE RECORDS SUMMARY | 2024-03-11 16:22 | XMS_ITS | Continuity of Care Document ---
Author Organization [facility] Address [address] [place] [address] [facility] - 06/15/22 [facility] [address] [place] [address] Discharge Disposition: Home or Self Care Attending Physician: Pankaj Ching MD Admitting Physician: Pankaj Ching MD Referring Physician: Pankaj Ching MD Results Laboratory List Name Date SARS-CoV-2 (COVID-19) RNA (ID Now) 06/15 Most recent to oldest [Reference Range]: 1 SARS-CoV-2 (COVID-19) RNA (ID Now) [Not Detected] Not Detected (06/15/22 4:39 PM) Social History Social History Type Response Sex Female
--- OUTSIDE RECORDS SUMMARY | 2024-03-11 16:22 | XMS_ITS | Encounter Summary ---
Author Organization [facility] Address [address] [place] [address] Care Team Providers Care Rotary Cutter Name Role Phone Thelma Cope APRN Primary Care Provider [phone] Encounter Details Date Type Department Care Team (Late st Contact Info) Description 08/10/2017 Results Only [facility] [phone] Luli Chavarria MD [address] [place] [address] [place], [place] [phone] Social History Tobacco Use Types Packs/Day Years [...] Diagnosis Comments PAP TEST- RESULT ONLY Routine 08/10/2017 0:00 EST documented in this encounter Results * PAP TEST- RESULT ONLY (08/10/2017 0:00 EST) Pathology Report: CYTOPATHOLOGY REPORT Reports generated via electronic interface contain original data; however they are lacking the format of the original report. Caution should be taken when reading/interpreti ng unformatted reports. Name: ? ALEXA PIERRE ? Accession #: ? [id number] ? : ? 1970 (Age: 47) ??F ?Collect Date: ? 08/10/2017 ? Location: ? [facility] ? Receive Date: ? 08/13/2017 ? Provider: LULI CHAVARRIA MD Copy to: ? Final Report SPECIMEN ADEQUACY ? Satisfactory for Evaluation - transformation zone component present GENERAL CATEGORIZATION ? Negative for Intraepithelial Lesion or Malignancy ?? Specimen/Source: ??Pap Test, Cervix, ThinPrep Imaging System with manual evaluation Document reviewed and electronically signed by: ? Camila Mensah, [place](ASCP) ? Report ??Date: 08/23/2017 13:44 HPV with Pap Test ? Date Ordered: ? 08/23/2017 ? Status: ?? Signed Out ?Date Complete: ? 08/24/2017 ? By: ??System Interface ? Date Reported: ? 08/24/2017 ? Interpretation RESULT: Negative for HPV. No E6 or E7 mRNA is detected from HPV types 16,18,31,33,35, 39,45,51,52,56,58, 59,66, and 68 by evp business development mediated amplification. Comments Document reviewed and electronically signed by: ? System Interface ? Report date: 08/24/2017 By the signature above, the attending physician certifies that he/she has personally conducted a gross and/or microscopic examination of the described specimens and rendered or confirmed the above diagnosis. End of Report [facility] 08/10/2017 08/13/2017 Luli Chavarria MD PATHOLOGY ORDERABLES [facility] [address] [place] [address] documented in this encounter Visit Diagnoses Not on filedocumented in this encounter Care Teams Rotary Cutter Relationship Specialty Start Date End Date Thelma Cope APRN [address] [place] [address] PCP - General 05/16/16 05/10/20 documented as of this encounter
--- OUTSIDE RECORDS SUMMARY | 2024-03-11 16:22 | XMS_ITS | Encounter Summary ---
Author Organization [facility] Address [address] [place] [address] Care Team Providers Care Bundle Packer Name Role Phone Isreal Chavarria MD Primary Care Provider Encounter Details Date Type Department Care Team (Late st Contact Info) Description 06/15/2020 Lab Requisition [facility] Pathology & Laboratory Medicine - [address] [address] Awilda Denton MD [address] [place] [address] Encounter for screening for other viral diseases [...] ORDER STANDALONE - BROAD COVID TEST Today 06/15/2020 7:10 EDT Encounter for screening for other viral diseases COVID-19 TESTING Today 06/15/2020 7:10 EDT Encounter for screening for other viral diseases documented in this encounter Results * DO NOT ORDER STANDALONE - BROAD COVID TEST (06/15/2020 7:10 EDT) COVID-19 rt-PCR Result NEGATIVE Negative 06/17/2020 11:45 EDT [facility] Comment: 2019-novel Coronavirus (2019-nCoV) not detected [...] in accordance with CLIA regulations, College of [place] [employer]ologists (CAP) guidelines (Nov 13, 2019), and FDA guidance (Oct 25, 2019). This test is only for use under the Food and Drug Administration's Emergency Use Authorization. Swab ENTIRE NASOPHARYNX / Unknown 06/15/2020 7:10 EDT 06/15/2020 22:31 EDT Awilda Denton MD MICROBIOLOGY - GENER AL ORDERABLES [facility] [place], [place] * COVID-19 TESTING (06/15/2020 7:10 EDT) [facility] COVID-19 rt-PCR Result NEGATIVE Negative 06/17/2020 12:20 EDT [facility] Comment: 2019-novel Coronavirus (2019-nCoV) not detected [...] in accordance with CLIA regulations, College of [place] [employer]ologists (CAP) guidelines (Nov 13, 2019), and FDA guidance (Oct 25, 2019). This test is only for use under the Food and Drug Administration's Emergency Use Authorization. Performing Lab [facility] 06/17/2020 12:20 EDT [facility] Swab ENTIRE NASOPHARYNX / Unknown 06/15/2020 7:10 EDT 06/15/2020 22:31 EDT Awilda Denton MD MICROBIOLOGY - GENER AL ORDERABLES [facility] [address] [place] [address] [facility] [place], [place] documented in this encounter Visit Diagnoses Diagnosis Encounter for screening for other viral diseases documented in this encounter Care Teams Bundle Packer Relationship Specialty Start Date End Date Isreal Chavarria MD [place] [address] PCP - General 05/11/20 documented as of this encounter
--- OUTSIDE RECORDS SUMMARY | 2024-03-11 16:22 | XMS_ITS | Encounter Summary ---
Author Organization [facility] Address [address] [place] [address] Care Team Providers Care Customer Liaison Name Role Phone Unavailable Primary Care Provider Unavailabl e Encounter Details Date Type Department Care Team (Late st Contact Info) Description 10/20/2009 Results Only [facility] Laboratory Services - [facility] ([facility] [address] [place], [place] [id number] Luli Conrteras MD [address] [place] [phone] Social History Tobacco Use Types Packs/Day Years Used Date Smoking Tobacco: Never Assessed Sex and Gender Information Value Date Recorded Sex Assigned at Not on file Gender Identity Not on file Sexual Orientation Not on file documented as of this encounter Plan of Treatment Not on file documented as of this encounter Procedures Procedure Name Priority Date/Time Associated Diagnosis Comments CYTOPATHOLOGY Routine 10/20/2009 0:00 EST documented in this encounter Results * CYTOPATHOLOGY (10/20/2009 0:00 EST) Pathology Report: CYTOPATHOLOGY REPORT ? Reports generated via electronic interface contain original data; ? however they are lacking the format of the original report. ? Caution should be taken when reading/interpreti ng unformatted reports. ? Name: ? ALEXA PIERRE ? Accession #: ? [id number] ? : ? 1970 (Age: 39) ??F ?Collect Date: ? 10/20/2009 ? Location: ? [facility] ? Receive Date: ? 10/22/2009 ? Provider: ?LULI CONTRERAS MD ? Copy to: ? Specimen/Source: ?Pap Test, Cervix/Endocervix, ThinPrep Imaging System ? with manual evaluation ? Last Menstrual Period: ? 2/3/10 ? Other: ? HPVA - HPV testing requested if ASC-US on the current ThinPrep Pap test. ? SPECIMEN ADEQUACY ? Satisfactory for Evaluation ? - transformation zone component present ? GENERAL CATEGORIZATION ? Negative for Intraepithelial Lesion or Malignancy ? Document reviewed and electronically signed by: ? Martha Lau, SCT(ASCP) ? Report Date: ??10/25/2009 13:46 ? End of Report ? [facility] 10/20/2009 10/22/2009 Luli Contreras MD PATHOLOGY ORDERABLES [facility] [address] [place] [address] documented in this encounter Visit Diagnoses Not on filedocumented in this encounter
--- OUTSIDE RECORDS SUMMARY | 2024-03-11 16:22 | XMS_ITS | Encounter Summary ---
Author Organization [facility] Address [address] [place] [address] Care Team Providers Care Repeater Operator Name Role Phone Isreal Chavarria MD Primary Care Provider [phone] Encounter Details Date Type Department Care Team (Late st Contact Info) Description 07/27/2020 Lab Requisition [facility] Pathology & Laboratory Medicine - [address] [address] Awilda Denton MD [address] [place] [address] Encounter for screening for other viral diseases [...] ORDER STANDALONE - BROAD COVID TEST Today 07/27/2020 7:05 EST Encounter for screening for other viral diseases COVID-19 TESTING Today 07/27/2020 7:05 EST Encounter for screening for other viral diseases documented in this encounter Results * DO NOT ORDER STANDALONE - BROAD COVID TEST (07/27/2020 7:05 EST) COVID-19 rt-PCR Result NEGATIVE Negative 07/29/2020 10:50 EST [facility] Comment: 2019-novel Coronavirus (2019-nCoV) not detected [...] in accordance with CLIA regulations, College of [place] Pathologists (CAP) guidelines (Nov 13, 2019), and FDA guidance (Oct 25, 2019). This test is only for use under the Food and Drug Administration's Emergency Use Authorization. Swab ENTIRE NASOPHARYNX / Unknown Swab / Unknown 07/27/2020 7:05 EST 07/27/2020 22:32 EST Awilda Denton MD MICROBIOLOGY - GENER AL ORDERABLES [place], [place] * COVID-19 TESTING (07/27/2020 7:05 EST) COVID-19 rt-PCR Result NEGATIVE Negative 07/29/2020 10:50 EST [facility] Comment: 2019-novel Coronavirus (2019-nCoV) not detected [...] in accordance with CLIA regulations, College of [place] [employer]ologists (CAP) guidelines (Nov 13, 2019), and FDA guidance (Oct 25, 2019). This test is only for use under the Food and Drug Administration's Emergency Use Authorization. Performing Lab [facility] 07/29/2020 10:50 EST [facility] Swab ENTIRE NASOPHARYNX / Unknown Swab / Unknown 07/27/2020 7:05 EST 07/27/2020 22:32 EST Awilda Denton MD MICROBIOLOGY - GENER AL ORDERABLES [facility] [address] [place] [address] [facility] [place] documented in this encounter Visit Diagnoses Diagnosis Encounter for screening for other viral diseases documented in this encounter Care Teams Repeater Operator Relationship Specialty Start Date End Date Isreal Chavarria MD [place] [address] PCP - General 05/11/20 documented as of this encounter
--- OUTSIDE RECORDS SUMMARY | 2024-03-11 16:22 | XMS_ITS | Referral Summary ---
Author Organization [facility] Address [address] [place] [address] Care Team Providers Care Personal Vehicle Advisor Name Role Phone Isreal Chavarria MD Primary Care Provider [phone] Social History Tobacco Use Types Packs/Day Years Used Date Smoking Tobacco: Never Assessed Interpersonal Safety Answer Date Record ed Physically Hurt Never 05/17/2020 Verbally Threaten Not on file 05/17/2020 Sex and Gender Information Value Date Recorded Sex Assigned at Not on file Gender Identity Not on file Sexual Orientation Not on file Plan of Treatment Not on file Procedures Procedure Name Priority Date/Time Associated Diagnosis Comments HEPATITIS C AB W REFLEX TO HCV RNA BY PCR Routine 01/23/2023 9:50 EDT from Last 3 Months or Most Recently Relevant to Health Maintenance Results * HEPATITIS C AB W REFLEX TO HCV RNA BY PCR (01/23/2023 9:50 EDT) Hep C Antibody Negative Negative 01/24/2023 9:32 EDT [facility] Blood VENOUS BLOOD / Unknown 01/23/2023 9:50 EDT 01/23/2023 21:57 EDT Provider Outr Resulting Lab CHEMISTRY & BLOOD GAS ORDERABLES [facility] [address] [place] [address] from Last 3 Months or Most Recently Relevant to Health Maintenance Care Teams Personal Vehicle Advisor Relationship Specialty Start Date End Date Isreal Chavarria MD [address] [place] [address] PCP - General 05/11/20
--- OUTSIDE RECORDS SUMMARY | 2024-03-11 16:22 | XMS_ITS | Encounter Summary ---
Author Organization [facility] Address [address] [place] [address] Care Team Providers Care Interventional Sale Consultant Name Role Phone Unavailable Primary Care Provider Unavailabl e Encounter Details Date Type Department Care Team (Late st Contact Info) Description 02/15/[address] [facility] [address] [place] [address] Mayra Snider PA [address] [place] [address] Social History Tobacco Use Types Packs/Day Years Used Date Smoking Tobacco: Never Assessed Sex and Gender Information Value Date Recorded Sex Assigned at Not on file Gender Identity Not on file Sexual Orientation Not on file documented as of this encounter Plan of Treatment Not on file documented as of this encounter Procedures Procedure Name Priority Date/Time Associated Diagnosis Comments CYTOPATHOLOGY Routine 02/15/2000 0:00 EDT documented in this encounter Results * CYTOPATHOLOGY (02/15/2000 0:00 EDT) Pathology Report: CYTOPATHOLOGY REPORT Reports generated via electronic interface contain original data; however they are lacking the format of the original report. Caution should be taken when reading/interpreti ng unformatted reports. Name: ? ALEXA PIERRE ? Accession #: ? [id number] : ? 1970 (Age: 29) ??F ?Collect Date: ? 02/15/2000 Location: ? [facility] ? Receive Date: ? 02/20/2000 Provider: ?MAYRA WALSH Copy to: ? Specimen/Source: ?Conventional Pap Test, Source Not Provided Last Menstrual Period: ? 01/02/00 Hormonal/Contracep tive Status: ? Control Pills: 12 - 13 Years. ? SPECIMEN ADEQUACY ? Satisfactory for evaluation. GENERAL CATEGORIZATION ? Within Normal Limits ? Document reviewed and electronically signed by: ? GABRIEL Boyle(ASCP) ? Report Date: ??02/21/2000 14:21 End of Report [facility] 02/15/2000 02/20/2000 Mayra WALSH PATHOLOGY ORDERABLES [facility] [address] [place] [address] documented in this encounter Visit Diagnoses Not on filedocumented in this encounter
--- OUTSIDE RECORDS SUMMARY | 2024-03-11 16:22 | XMS_ITS | Encounter Summary ---
Author Organization [facility] Address [address] [place] [address] Care Team Providers Care Jumpbasting Canvas Baster Name Role Phone Isreal Chavarria MD Primary Care Provider [phone] Encounter Details Date Type Department Care Team (Late st Contact Info) Description 01/23/2023 Lab Requisition [place] Pathology & Laboratory Medicine - [address] [id number] Outr Resulting Lab, Provider Social History Tobacco Use Types Packs/Day [...] RNA BY PCR Routine 01/23/2023 9:50 EDT documented in this encounter Results * HEPATITIS C AB W REFLEX TO HCV RNA BY PCR (01/23/2023 9:50 EDT) Hep C Antibody Negative Negative 01/24/2023 9:32 EDT [facility] Blood VENOUS BLOOD / Unknown 01/23/2023 9:50 EDT 01/23/2023 21:57 EDT Provider Outr Resulting Lab CHEMISTRY & BLOOD GAS ORDERABLES [facility] [address] [place] [address] documented in this encounter Visit Diagnoses Not on filedocumented in this encounter Care Teams Jumpbasting Canvas Baster Relationship Specialty Start Date End Date Isreal Chavarria MD [address] [place] [address] PCP - General 05/11/20 documented as of this encounter
--- OUTSIDE RECORDS SUMMARY | 2024-03-11 16:22 | XMS_ITS | Encounter Summary ---
Author Organization [facility] Address [address] [place] [address] Care Team Providers Care Abrading Machine Tender Name Role Phone Israel Chavarria MD Primary Care Provider [phone] Encounter Details Date Type Department Care Team (Late st Contact Info) Description 01/24/2023 Lab Requisition [facility] Pathology & Laboratory Medicine - [facility] [address] [place] [address] Isreal Chavarria MD [address] [place] [address] [place], [place] [address] Encounter for other general examination Social History Tobacco Use Types Packs/Day Years [...] Name Priority Date/Time Associated Diagnosis Comments PAP TEST Today 01/23/2023 9:30 EDT Encounter for other general examination HPV DNA DETECTION WITH GENOTYPING, PCR Today 01/23/2023 9:30 EDT Encounter for other general examination documented in this encounter Results * HUMAN PAPILLOMAVIRUS (HPV) DETECTION-HIGH RISK TYPES (01/23/2023 9:30 EDT) HPV other High Risk types, PCR Negative Negative 02/07/2023 16:58 EDT [facility] Comment:No E6 or E7 mRNA is detected from HPV types 16,18,31,33,35,39,45,51,52,56,58,59,66, and 68 by ramp boss mediated amplification. Papanicolaou smear specimen (specimen) CERVIX UTERI STRUCTURE / Unknown 01/23/2023 9:30 EDT 02/07/2023 9:43 EDT Isreal Chavarria MD MICROBIOLOGY - GENER AL ORDERABLES [facility] [address] [place] [address] * PAP TEST (01/23/2023 9:30 EDT) Specimens A. Cervix and/or Endocervix , ThinPrep Imaging System with Manual Evaluation 02/07/2023 16:58 T [facility] Specimen Adequacy Satisfactory for Evaluation - transformation zone component present [facility]23 [facility] General Categorization Negative for intraepithelial lesion or malignancy 02/07/2023 16:58 T [facility] Attestation . 02/07/2023 16:58 [facility] at 1658 Clinical History See below 02/08/20 23 16:58 T [facility] HPV The result for the Human Papillomavirus (HPV) Detection-High Risk Types is Negative. No E6 or E7 mRNA is detected from HPV types 16,18,31,33,35,39 ,45,51,52,56,58,5 9,66, and 68 by ramp boss mediated amplification.Anum ting was performed on specimen [id number] and was resulted on 02/07/2023 1658 EDT by FAHAD, LAB INSTRUMENT RESULTS IN 02/07/2023 16:58 T [facility] Performing Lab [facility] 02/07/2023 16:58 T [facility] Scanned Images 02/07/2023 16:58 T [facility] Papanicolaou smear specimen (specimen) CERVIX UTERI STRUCTURE / Unknown 01/23/2023 9:30 EDT 01/24/2023 10:14 EDT Isreal Chavarria MD PATHOLOGY ORDERABLES [facility] [address] [place] [address] documented in this encounter Visit Diagnoses Diagnosis Encounter for other general examination documented in this encounter Care Teams Abrading Machine Tender Relationship Specialty Start Date End Date Isreal Chavarria MD [address] [place] [address] PCP - General 05/11/20 documented as of this encounter
--- OUTSIDE RECORDS SUMMARY | 2024-03-11 16:22 | XMS_ITS | Encounter Summary ---
Author Organization [facility] Address [address] [place] [address] Care Team Providers Care Ios Developer Name Role Phone Unavailable Primary Care Provider Unavailabl e Encounter Details Date Type Department Care Team (Late st Contact Info) Description 01/04/2015 Results Only [facility] [phone] Khai Mars, INDUSTRIAL EDITOR [address] [place] [address] Social History Tobacco Use Types Packs/Day Years [...] Diagnosis Comments PAP TEST- RESULT ONLY Routine 01/04/2015 0:00 EDT documented in this encounter Results * PAP TEST- RESULT ONLY (01/04/2015 0:00 EDT) Pathology Report: CYTOPATHOLOGY REPORT Reports generated via electronic interface contain original data; however they are lacking the format of the original report. Caution should be taken when reading/interpreti ng unformatted reports. Name: ? ALEXA PIERRE ? Accession #: ? [id number] ? : ? 1970 (Age: 44) ??F ?Collect Date: ? 01/04/2015 ? Location: ? [facility] ? Receive Date: ? 01/05/2015 ? Provider: KHAI MARS INDUSTRIAL EDITOR Copy to: ? Final Report SPECIMEN ADEQUACY ? Satisfactory for Evaluation - transformation zone component present GENERAL CATEGORIZATION ? Negative for Intraepithelial Lesion or Malignancy INTERPRETATION ? Reactive cellular changes associated with inflammation present (includes repair). Shift in abiola present suggestive of bacterial vaginosis. Last Menstrual Period: 12/07/2014 Specimen/Source: ??Pap Test, Cervix/Endocervix, ThinPrep Imaging System with manual evaluation Document reviewed and electronically signed by: ? KRYSTLE JAMES MD [facility] ? Report ??Date: 01/14/2015 11:22 HPV with Pap Test ? Date Ordered: ? 01/14/2015 ? Status: ?? Signed Out ?Date Complete: ? 01/18/2015 ? By: ??System Interface ? Date Reported: ? 01/18/2015 ? Interpretation RESULT: Negative for HPV. No E6 or E7 mRNA is detected from HPV types 16,18,31,33,35, 39,45,51,52,56,58, 59,66, and 68 by energy manager mediated amplification. Comments Document reviewed and electronically signed by: ? System Interface ? Report date: 01/18/2015 By the signature above, the attending physician certifies that he/she has personally conducted a gross and/or microscopic examination of the described specimens and rendered or confirmed the above diagnosis. End of Report [facility] 01/04/2015 01/05/2015 Khai Mars NP PATHOLOGY ORDERABLES [facility] [address] [place] [address] documented in this encounter Visit Diagnoses Not on filedocumented in this encounter
--- OUTSIDE RECORDS SUMMARY | 2024-03-11 16:22 | XMS_ITS | Clinical Summary ---
Author Organization [facility] Address [address] [place] [address] Care Team Providers Care Visiting Professor Name Role Phone Isreal Chavarria MD Primary Care Provider [phone] Social History Tobacco Use Types Packs/Day Years Used Date Smoking Tobacco: Never Assessed Interpersonal Safety Answer Date Record ed Physically Hurt Never 05/17/2020 Verbally Threaten Not on file 05/17/2020 Sex and Gender Information Value Date Recorded Sex Assigned at Not on file Gender Identity Not on file Sexual Orientation Not on file Plan of Treatment Health Maintenance Due Date Last Done Comments Hepatitis B Vaccine (1 of 3 - 19+ 3-dose series) 06/26 COVID-19 Vaccine (2022- season) 2023 Hepatitis C Screen Completed 01/23/2023 Procedures Procedure Name Priority Date/Time Associated Diagnosis Comments HEPATITIS C AB W REFLEX TO HCV RNA BY PCR Routine 01/23/2023 9:50 EDT from Last 3 Months or Most Recently Relevant to Health Maintenance Results * HEPATITIS C AB W REFLEX TO HCV RNA BY PCR (01/23/2023 9:50 EDT) Hep C Antibody Negative Negative 01/24/2023 9:32 EDT [facility] Blood VENOUS BLOOD / Unknown 01/23/2023 9:50 EDT 01/23/2023 21:57 EDT Provider Outr Resulting Lab CHEMISTRY & BLOOD GAS ORDERABLES [facility] [address] [place] [address] from Last 3 Months or Most Recently Relevant to Health Maintenance Care Teams Visiting Professor Relationship Specialty Start Date End Date Isreal Chavarria MD [facility] [place] [address] PCP - General 05/11/20
--- OUTSIDE RECORDS SUMMARY | 2024-03-11 16:22 | XMS_ITS | Encounter Summary ---
Author Organization [facility] [place] [address] Care Team Providers Care Thresher Broomcorn Name Role Phone Isreal Hebert MD Primary Care Provider [phone] Encounter Details Date Type Department Care Team (Late st Contact Info) Description 06/19/2022 Interpretation Only [address] [phone] Pankaj Ching MD [address] [place] [address] [address] Social History Tobacco Use Types Packs/Day Years Used Date Smoking Tobacco: Never Assessed Sex and Gender Information Value Date Recorded Sex Assigned at Not on file Gender Identity Not on file Sexual Orientation Not on file documented as of this encounter Plan of Treatment Pending Results Name Type Priority Associated Diagnoses Date /Time US EXTREMITY VENOUS DUPLEX Imaging Routine 06/19/2022 2:14 PM EDT documented as of this encounter Visit Diagnoses Not on filedocumented in this encounter Care Teams Thresher Broomcorn Relationship Specialty Start Date End Date Isreal Hebert MD [address] [place] [address] PCP - General 12/16/18 documented as of this encounter
--- OUTSIDE RECORDS SUMMARY | 2024-03-11 16:22 | XMS_ITS | Encounter Summary ---
Author Organization [facility] Address [address] [place] [address] Care Team Providers Care Hooker Machine Tender Name Role Phone Isreal Chavarria MD Primary Care Provider [phone] Encounter Details Date Type Department Care Team (Late st Contact Info) Description 05/11/2020 Lab Requisition [facility] Pathology & Laboratory Medicine - [address] [address] Yarely Dyson MD [address] [place] [phone] Encounter for screening for malignant neoplasm of colon Social History Tobacco Use Types Packs/Day Years Used Date Smoking Tobacco: Never Assessed Sex and Gender Information Value Date Recorded Sex Assigned at Not on file Gender Identity Not on file Sexual Orientation Not on file documented as of this encounter Plan of Treatment Not on file documented as of this encounter Procedures Procedure Name Priority Date/Time Associated Diagnosis Comments SURGICAL PATHOLOGY Today 05/11/2020 10 :52 EDT Encounter for screening for malignant neoplasm of colon documented in this encounter Results * SURGICAL PATHOLOGY (05/11/2020 10:52 EDT) Final Diagnosis A. COLON, ASCENDING, POLYP, BIOPSY: - Tubular adenoma. - Mild melanosis coli. B. COLON, DESCENDING, BIOPSIES: - Mild melanosis coli. 05/12/2020 10:08 EDT [facility] Attestation By the signature below, the attending physician certifies that they have 1) personally conducted a gross and/or microscopic examination of the described specimen(s), and/or personally interpreted the results of laboratory testing of the described specimen(s), and 2) personally rendered or confirmed the above diagnosis. 05/12/2020 10:08 [facility] at 1008 Clinical History Abdominal pain/screening 05/12/2020 10:08 [facility] Gross Description A. Received in formalin labelled with proper patient identification (initials B, B) and ascending colon polyp are 2 light mensah tissues measuring 0.3 x 0.2 x 0.1 cm and 0.3 x 0.2 x 0.2 cm. Submitted intact in A1. B. Received in formalin labelled with proper patient identification (initials B, B) and random biopsies descending colon are 4 mensah-pink tissues ranging in size from 0.2 x 0.2 x 0.2 cm up to 0.4 x 0.2 x 0.2 cm. Submitted intact in B1-B2. ROSMERY GODFREY 05/11/2020 18:23 05/12/2020 10:08 EDT [facility] Performing Lab [facility] 05/12/2020 10:08 [facility] Scanned Images 05/12/2020 10:08 T [facility] Tissue DESCENDING COLON STRUCTURE / Unknown 05/11/2020 10:52 EDT 05/11/2020 17:40 EDT Tissue specimen (specimen) DESCENDING COLON STRUCTURE / Unknown 05/11/2020 10:52 EDT 05/11/2020 17:40 EDT Yarely Dyson MD PATHOLOGY ORDERABLES [facility] [address] [place] [address] documented in this encounter Visit Diagnoses Diagnosis Encounter for screening for malignant neoplasm of colon Special screening for malignant neoplasms, colon documented in this encounter Care Teams Hooker Machine Tender Relationship Specialty Start Date End Date Isreal [place] [address] PCP - General 05/11/20 documented as of this encounter
--- OUTSIDE RECORDS SUMMARY | 2024-03-11 16:22 | XMS_ITS | Encounter Summary ---
Author Organization [facility] Address [address] [place] [address] Care Team Providers Care Dairy Science Teacher Name Role Phone Thelma Bernardo APRN Primary Care Provider [phone] Encounter Details Date Type Department Care Team (Late st Contact Info) Description 05/15/2016 Results Only [facility] [phone] Patience Carney MD [address] [place] [address] [address] [place], [place] [phone] Social History Tobacco Use Types Packs/Day Years Used Date Smoking Tobacco: Never Assessed Sex and Gender Information Value Date Recorded Sex Assigned at Not on file Gender Identity Not on file Sexual Orientation Not on file documented as of this encounter Plan of Treatment Not on file documented as of this encounter Procedures Procedure Name Priority Date/Time Associated Diagnosis Comments SURGICAL PATHOLOGY Routine 05/15/2016 9:46 EDT documented in this encounter Results * SURGICAL PATHOLOGY (05/15/2016 9:46 EDT) Pathology Report: SURGICAL PATHOLOGY REPORT Reports generated via electronic interface contain original data; however they are lacking the format of the original report. Caution should be taken when reading/interpretin g unformatted reports. Name: ? ALEXA PIERRE ? Accession #: ? [id number] ? : ? 1970 (Age: 45) ??F ? Collect Date: ? 05/15/2016 ? Location: ? [facility] ? Receive Date: ? 05/16/2016 ? Provider: PATIENCE CARNEY MD Copy to: THELMA BERNARDO MARINE INSULATOR ? Final Pathologic Diagnosis: A. STOMACH, ANTRUM, BIOPSY: - ??Oxyntic mucosa with no significant abnormality. - ??No evidence of Helicobacter pylori on H&E. B. GASTROESOPHAGEAL JUNCTION, BIOPSY: - ??Squamous mucosa with histologic features of reflux esophagitis. - ??Adjoining cardia type mucosa with foveolar hyperplasia, Negative for intestinal metaplasia or dysplasia. Document reviewed and electronically signed by: SHEYLA MELTON MD Report ??Date: 05/18/2016 10:35 By the signature above, the attending physician certifies that he/she has personally conducted a gross and/or microscopic examination of the described specimens and rendered or confirmed the above diagnosis. Specimen(s) Received: A. ??Antrum B. ??GE junction Clinical History: Reflux, on Omeprazole Gross Description: A. ?Received in formalin labelled with proper patient identification (initials B, B) and antrum is a single pink-mensah tissue fragment (0.3 x 0.3 x 0.2 cm). Submitted intact in A1. B. ?Received in formalin labelled with proper patient identification (initials B, B) and GE junction are three pink-mensah tissues (each 0.3 x 0.2 x 0.1 cm). Entirely submitted in B1. Sagar Gunn 05/16/2016 2:09 PM End of Report [facility] 05/15/2016 9:46 EDT 05/16/2016 9:46 EDT Patience Carney MD PATHOLOGY ORDERJani RAMÍREZ [facility] [address] [place] [address] documented in this encounter Visit Diagnoses Not on filedocumented in this encounter Care Teams Dairy Science Teacher Relationship Specialty Start Date End Date Thelma Bernardo APRN [address] [place] [address] PCP - General 05/16/16 05/10/20 documented as of this encounter
--- OUTSIDE RECORDS SUMMARY | 2024-03-11 16:22 | XMS_ITS | Encounter Summary ---
Author Organization [facility] Address [address] [place] [address] Care Team Providers Care Administrative Secretary Name Role Phone Unavailable Primary Care Provider Unavailabl e Encounter Details Date Type Department Care Team (Latest Contact Info) Description 05/15/2016 16:27 EDT - 05/15/2016 23:59 EDT Hospital Encounter [address] [address] Unknown, Provider, Discharge Disposition: Home or Self Care Social History Tobacco Use Types Packs/Day Years Used Date Smoking Tobacco: Never Assessed Sex and Gender Information Value Date Recorded Sex Assigned at Not on file Gender Identity Not on file Sexual Orientation Not on file documented as of this encounter Discharge Diagnoses Diagnosis Z01.89 Encounter for other specified special examinations-Z01.89[ICD-10-CM] documented in this encounter Discharge Disposition Disposition Code Departure Means Destination Home or Self Snf documented in this encounter Plan of Treatment Not on file documented as of this encounter Visit Diagnoses Not on filedocumented in this encounter
--- OUTSIDE RECORDS SUMMARY | 2024-03-11 16:22 | XMS_ITS | Encounter Summary ---
Author Organization [facility] Address [address] [place] [address] Care Team Providers Care Rim Fire Priming Tool Setter Name Role Phone Isreal Chavarria MD Primary Care Provider [phone] Encounter Details Date Type Department Care Team (Late st Contact Info) Description 08/10/2020 Lab Requisition [facility] Pathology & Laboratory Medicine - [facility] [address] [place] [address] Awilda Denton MD [address] [place] [address] Encounter for other general examination Social History [...] ORDER STANDALONE - BROAD COVID TEST Today 08/10/2020 5:15 EST Encounter for other general examination COVID-19 TESTING Today 08/10/2020 5:15 EST Encounter for other general examination documented in this encounter Results * DO NOT ORDER STANDALONE - BROAD COVID TEST (08/10/2020 5:15 EST) COVID-19 rt-PCR Result NEGATIVE Negative 08/13/2020 10:45 EST [facility] Comment: 2019-novel Coronavirus [...] in accordance with CLIA regulations, College of [employer] Pathologists (CAP) guidelines (Nov 13, 2019), and FDA guidance (Oct 25, 2019). This test is only for use under the Food and Drug Administration's Emergency Use Authorization. Swab ENTIRE NASOPHARYNX / Unknown Swab / Unknown 08/10/2020 5:15 EST 08/10/2020 21:29 EST Awilda Denton MD MICROBIOLOGY - GENER AL ORDERABLES [facility] [place], [place] * COVID-19 TESTING (08/10/2020 5:15 EST) COVID-19 rt-PCR Result NEGATIVE Negative 08/13/2020 12:35 EST [facility] Comment: 2019-novel Coronavirus (2019-nCoV) not detected [...] in accordance with CLIA regulations, College of [employer] Pathologists (CAP) guidelines (Nov 13, 2019), and FDA guidance (Oct 25, 2019). This test is only for use under the Food and Drug Administration's Emergency Use Authorization. Performing Lab [facility] 08/13/2020 12:35 EST [facility] Swab ENTIRE NASOPHARYNX / Unknown Swab / Unknown 08/10/2020 5:15 EST 08/10/2020 21:29 EST Awilda Denton MD MICROBIOLOGY - GENER AL ORDERABLES [facility] [address] [place] [address] [facility] [place], [place] documented in this encounter Visit Diagnoses Diagnosis Encounter for other general examination documented in this encounter Care Teams Rim Fire Priming Tool Setter Relationship Specialty Start Date End Date Isreal Chavarria [place] [address] [place] [address] PCP - General 05/11/20 documented as of this encounter
[2024-03-11 16:32] LABS: Abs Immature Grans 0.05 10^3/uL (0.0-0.06); Absolute Eosinophil Count 0.25 10^3/uL (0.0-0.7); Absolute Monocyte Count 0.64 10^3/uL (0.1-0.8); Basophils % 0.5 %; Eosinophils % 2.3 %; HCT 45.8 % (36.0-46.0); HGB 15.2 g/dL (11.2-15.7); Immature Grans % 0.5 %; Lymphocytes % 31.1 %; MCH 30.2 pg (27.0-33.0); MCHC 33.2 % (32.0-36.0); MCV 91 fL (80-95); MPV 9.3 fL (8.0-11.0); Monocytes % 5.8 %; Neutrophils % 59.8 %; Platelet Count 454 10^3/uL (130-400); RBC 5.04 10^6/uL (3.93-5.22); RDW 14.7 % (11.7-14.6); RDW-SD 49.4 fL; WBC 10.98 10^3/uL (4.4-10.8)
[2024-03-11 16:34] LABS: Absolute Basophil Count 0.05 10^3/uL (0.0-0.2); Absolute Lymphocyte Count 3.41 10^3/uL (1.2-3.4); Absolute Neutrophil Count 6.57 10^3/uL (1.2-6.7); ESR 35 mm/hr (0-30)
[2024-03-11 17:07] LABS: ALT 21 U/L (14-59); AST 16 U/L (15-37); Albumin 4.1 g/dL (3.4-5.0); Alkaline Phosphatase 88 U/L (46-116); Anion Gap 8.9 mmol/L (3-11); BUN 10 mg/dL (7-18); Bilirubin, Total 0.68 mg/dL (0.2-1.0); CO2 28.1 mmol/L (21.0-32.0); CREATININE 0.7 mg/dL (0.55-1.02); Calcium 9.8 mg/dL (8.5-10.1); Chloride 106 mmol/L (98-107); Estimated GFR 102.07 (mL/min/1.73m2); Glucose 88 mg/dL (74-106); Potassium 4.5 mmol/L (3.5-5.1); Sodium 143 mmol/L (136-145); Total Protein 7.4 g/dL (6.4-8.2)
== END 2024-03-11 16:20 | disposition home or self-care (01) ==
LOC: NCHCN 16:19
PROVIDERS: PCP Student in an Organized Health Care Education/Training Program; Visit Provider Student in an Organized Health Care Education/Training Program
DX: R10.9 Unspecified abdominal pain (principal); R70.0 Elevated erythrocyte sedimentation rate
CPT/HCPCS: 80053; 85652; 85025

== ENCOUNTER 2024-03-14 16:01 | Outpatient (CLI) | payer OTHER, SELFPAY ==
--- OUTSIDE RECORDS SUMMARY | 2024-03-14 16:02 | XMS_ITS | Encounter Summary ---
Author Organization [facility] Address [address] [place] [address] Care Team Providers Care Application Developer Manager Name Role Phone Isreal Chavarria MD Primary Care Provider [phone] Encounter Details Date Type Department Care Team (Late st Contact Info) Description 08/10/2020 Lab Requisition [facility] Pathology & Laboratory Medicine - [facility] [address] [place] [address] Awilda Denton MD [address] [place] [phone] Encounter for other general examination Social History [...] in accordance with CLIA regulations, College of M[employer] Pathologists (CAP) guidelines (Nov 13, 2019), and FDA guidance (Oct 25, 2019). This test is only for use under the Food and Drug Administration's Emergency Use Authorization. Swab ENTIRE NASOPHARYNX / Unknown Swab / Unknown 08/10/2020 5:15 EST 08/10/2020 21:29 EST Awilda Denton MD MICROBIOLOGY - GENER AL ORDERABLES [facility] [place], [place] * COVID-19 TESTING (08/10/2020 5:15 EST) COVID-19 rt-PCR Result NEGATIVE Negative 08/13/2020 12:35 EST [facility] Comment: 2019-novel Coronavirus (2019-nCoV) not detected [...] in accordance with CLIA regulations, College of Malt[employer] Pathologists (CAP) guidelines (Nov 13, 2019), and FDA guidance (Oct 25, 2019). This test is only for use under the Food and Drug Administration's Emergency Use Authorization. Performing Lab [facility] 08/13/2020 12:35 EST [facility] Swab ENTIRE NASOPHARYNX / Unknown Swab / Unknown 08/10/2020 5:15 EST 08/10/2020 21:29 EST Awilda Denton MD MICROBIOLOGY - GENER AL ORDERABLES [facility] [address] [place] [address] [facility] [place], [place] documented in this encounter Visit Diagnoses Diagnosis Encounter for other general examination documented in this encounter Care Teams Application Developer Manager Relationship Specialty Start Date End Date Isreal Chavarria MD [place] [address] PCP - General 05/11/20 documented as of this encounter
--- OUTSIDE RECORDS SUMMARY | 2024-03-14 16:02 | XMS_ITS | Encounter Summary ---
Author Organization [facility] Address [address] [place] [address] Care Team Providers Care Business Process Coordinator Name Role Phone Isreal Chavarria MD Primary Care Provider [phone] Encounter Details Date Type Department Care Team (Late st Contact Info) Description 01/23/2023 Lab Requisition [facility] Pathology & Laboratory Medicine - [address] [id number] Outr Resulting Lab, Provider Social History Tobacco [...] C Antibody Negative Negative 01/24/2023 9:32 EDT [facility] Blood VENOUS BLOOD / Unknown 01/23/2023 9:50 EDT 01/23/2023 21:57 EDT Provider Outr Resulting Lab CHEMISTRY & BLOOD GAS ORDERABLES [facility] [address] [place] [address] documented in this encounter Visit Diagnoses Not on filedocumented in this encounter Care Teams Business Process Coordinator Relationship Specialty Start Date End Date Isreal Chavarria MD [address] [place] [address] PCP - General 05/11/20 documented as of this encounter
--- OUTSIDE RECORDS SUMMARY | 2024-03-14 16:02 | XMS_ITS | Encounter Summary ---
Author Organization [facility] Address [address] [place] [address] Care Team Providers Care Wool Grader Name Role Phone Isreal Chavarria MD Primary Care Provider [phone] Encounter Details Date Type Department Care Team (Late st Contact Info) Description 01/24/2023 Lab Requisition [facility] Pathology & Laboratory Medicine - [facility] [address] [place] [address] Isreal Chavarria MD [address] [place] [address] [place], [place] [id number] Encounter for other general examination Social History [...] types, PCR Negative Negative 02/07/2023 16:58 EDT [facility] Comment:No E6 or E7 mRNA is detected from HPV types 16,18,31,33,35,39,45,51,52,56,58,59,66, and 68 by welding machine operator helper gas mediated amplification. Papanicolaou smear specimen (specimen) CERVIX UTERI STRUCTURE / Unknown 01/23/2023 9:30 EDT 02/07/2023 9:43 EDT Isreal Chavarria MD MICROBIOLOGY - GENER AL ORDERABLES [facility] [address] [place] [address] * PAP TEST (01/23/2023 9:30 EDT) Specimens A. Cervix and/or Endocervix , ThinPrep Imaging System with Manual Evaluation 02/07/2023 16:58 T [facility] Specimen Adequacy Satisfactory for Evaluation - transformation zone component present [facility] General Categorization Negative for intraepithelial lesion or malignancy 02/07/2023 16:58 T [facility] Attestation . 02/07/2023 16:58 [facility] at 1658 Clinical History See below 02/08/20 23 16:58 T [facility] HPV The result for the Human Papillomavirus (HPV) Detection-High Risk Types is Negative. No E6 or E7 mRNA is detected from HPV types 16,18,31,33,35,39 ,45,51,52,56,58,5 9,66, and 68 by welding machine operator helper gas mediated amplification.Anum ting was performed on specimen [id number] and was resulted on 02/07/2023 1658 EDT by FAHAD, LAB INSTRUMENT RESULTS IN 02/07/2023 16:58 T [facility] Performing Lab [facility] 02/07/2023 16:58 T [facility] Scanned Images 02/07/2023 16:58 T [facility] Papanicolaou smear specimen (specimen) CERVIX UTERI STRUCTURE / Unknown 01/23/2023 9:30 EDT 01/24/2023 10:14 EDT Isreal Chavarria MD PATHOLOGY ORDERABLES [facility] [address] [place] [address] documented in this encounter Visit Diagnoses Diagnosis Encounter for other general examination documented in this encounter Care Teams Wool Grader Relationship Specialty Start Date End Date Isreal Chavarria MD [address] [place] [address] PCP - General 05/11/20 documented as of this encounter
--- OUTSIDE RECORDS SUMMARY | 2024-03-14 16:02 | XMS_ITS | Referral Summary ---
Author Organization [facility] Address [address] [place] [address] Care Team Providers Care Chief Enterprise Architect Name Role Phone Isreal Chavarria MD Primary Care Provider [phone] Social History Tobacco Use Types Packs/Day Years [...] C Antibody Negative Negative 01/24/2023 9:32 EDT [facility] Blood VENOUS BLOOD / Unknown 01/23/2023 9:50 EDT 01/23/2023 21:57 EDT Provider Outr Resulting Lab CHEMISTRY & BLOOD GAS ORDERABLES [facility] [address] [place] [address] from Last 3 Months or Most Recently Relevant to Health Maintenance Care Teams Chief Enterprise Architect Relationship Specialty Start Date End Date Isreal Chavarria MD [address] [place] [address] PCP - General 05/11/20
--- OUTSIDE RECORDS SUMMARY | 2024-03-14 16:02 | XMS_ITS | Clinical Summary ---
Author Organization [facility] Address [address] [place] [address] Care Team Providers Care Stablehand Name Role Phone Isreal Chavarria MD Primary Care Provider [phone] Social History Tobacco Use Types Packs/Day Years [...] C Antibody Negative Negative 01/24/2023 9:32 EDT [facility] Blood VENOUS BLOOD / Unknown 01/23/2023 9:50 EDT 01/23/2023 21:57 EDT Provider Outr Resulting Lab CHEMISTRY & BLOOD GAS ORDERABLES [facility] [address] [place] [address] from Last 3 Months or Most Recently Relevant to Health Maintenance Care Teams Stablehand Relationship Specialty Start Date End Date Isreal Chavarria MD [facility] [place] [address] PCP - General 05/11/20
--- OUTSIDE RECORDS SUMMARY | 2024-03-14 16:03 | XMS_ITS | Encounter Summary ---
Author Organization [facility] Address [address] [place] [address] Care Team Providers Care Psychology Department Chair Name Role Phone Unavailable Primary Care Provider Unavailabl e Encounter Details Date Type Department Care Team (Late st Contact Info) Description 06/02/2003 Results Only [facility] [address] [place] [address] Luli Contreras MD [address] [place] [address] Social History Tobacco Use Types [...] ? ALEXA PIERRE ? Accession #: ? [id number] : ? 1970 (Age: 32) ??F ?Collect [...] Contreras MD PATHOLOGY ORDERABLES Performing Organization Address City/State/[place] de Phone Number MARVA HAWKINS [address] [place] [address] documented in this encounter Visit Diagnoses Not on filedocumented in this encounter
--- OUTSIDE RECORDS SUMMARY | 2024-03-14 16:03 | XMS_ITS | Encounter Summary ---
Author Organization [facility] Address [address] [place] [address] Care Team Providers Care Marinator Name Role Phone Isreal Chavarria MD Primary Care Provider [phone] Encounter Details Date Type Department Care Team (Late st Contact Info) Description 05/26/2020 Lab Requisition [facility] Pathology & Laboratory Medicine - [address] [address] Awilda Denton MD [address] [place] [address] Encounter for screening for other viral diseases [...] COVID-19 rt-PCR Result NEGATIVE Negative 05/27/2020 15:09 [facility] Comment: 2019-novel Coronavirus (2019-nCoV) [...] in accordance with CLIA regulations, College of [place] Pathologists (CAP) guidelines (Nov 13, 2019), and FDA guidance (Oct 25, 2019). This test is only for use under the Food and Drug Administration's Emergency Use Authorization. Swab ENTIRE NASOPHARYNX / Unknown 05/25/2020 7:05 EDT 05/26/2020 9:13 EDT Awilda Denton MD MICROBIOLOGY - GENER AL ORDERABLES [facility] [place], [place] * COVID-19 TESTING (05/25/2020 7:05 EDT) [facility] COVID-19 rt-PCR Result NEGATIVE Negative 05/27/2020 17:17 EDT [facility] Comment: 2019-novel Coronavirus (2019-nCoV) not detected [...] in accordance with CLIA regulations, College of [employer] Pathologists (CAP) guidelines (Nov 13, 2019), and FDA guidance (Oct 25, 2019). This test is only for use under the Food and Drug Administration's Emergency Use Authorization. Performing Lab [facility] 05/27/2020 17:17 EDT [facility] Swab 05/25/2020 7:05 EDT 05/26/2020 9:13 EDT Awilda Denton MD MICROBIOLOGY - GENER AL ORDERABLES [facility] [address] [place] [address] [facility] [place], [place] documented in this encounter Visit Diagnoses Diagnosis Encounter for screening for other viral diseases documented in this encounter Care Teams Marinator Relationship Specialty Start Date End Date Isreal Chavarria MD [place] [address] PCP - General 05/11/20 documented as of this encounter
--- OUTSIDE RECORDS SUMMARY | 2024-03-14 16:03 | XMS_ITS | Encounter Summary ---
Author Organization [facility] Address [address] [place] [address] Care Team Providers Care Grout Machine Operator Name Role Phone Unavailable Primary Care Provider Unavailabl e Encounter Details Date Type Department Care Team (Latest Contact Info) Description 05/15/2016 16:27 EDT - 05/15/2016 23:59 EDT Hospital Encounter [address] [address] Unknown, Provider, Discharge Disposition: Home or Self [...] Code Departure Means Destination Home or Self Shelter documented in this encounter Plan of Treatment Not on file documented as of this encounter Visit Diagnoses Not on filedocumented in this encounter
--- OUTSIDE RECORDS SUMMARY | 2024-03-14 16:03 | XMS_ITS | Encounter Summary ---
Author Organization [facility] Address [address] [place] [address] Care Team Providers Care Ring Maker Name Role Phone Thelma Bernardo APRN Primary Care Provider [phone] Encounter Details Date Type Department Care Team (Late st Contact Info) Description 05/15/2016 Results Only [facility] [phone] Patience Carney MD [address] [place] [address] [address] [place], [place] [id number] Social History Tobacco Use Types Packs/Day Years [...] ? ALEXA PIERRE ? Accession #: ? [id number] ? : ? 1970 (Age: 45) ??F ? Collect Date: ? 05/15/2016 ? Location: ? [facility] ? Receive Date: ? 05/16/2016 ? Provider: PATIENCE CARNEY MD Copy to: THELMA BERNARDO SUPERVISOR SCOURING PADS ? Final Pathologic Diagnosis: A. STOMACH, ANTRUM, [...] Gunn 05/16/2016 2:09 PM End of Report [facility] 05/15/2016 9:46 EDT 05/16/2016 9:46 EDT Patience Carney MD PATHOLOGY ORDERJani RAMÍREZ [facility] [address] [place] [address] documented in this encounter Visit Diagnoses Not on filedocumented in this encounter Care Teams Ring Maker Relationship Specialty Start Date End Date Thelma Bernardo APRN [address] [place] [address] PCP - General 05/16/16 05/10/20 documented as of this encounter
--- OUTSIDE RECORDS SUMMARY | 2024-03-14 16:03 | XMS_ITS | Encounter Summary ---
Author Organization [facility] Address [address] [place] [address] Care Team Providers Care High Density Press Operator Name Role Phone Isreal Chavarria MD Primary Care Provider [phone] Encounter Details Date Type Department Care Team (Late st Contact Info) Description 05/11/2020 Lab Requisition [facility] Pathology & Laboratory Medicine - [address] [address] Yarely Dyson MD [address] [place] [address] [phone] Encounter for screening for malignant neoplasm of [...] - Mild melanosis coli. 05/12/2020 10:08 EDT [facility] Attestation By the signature below, the attending physician certifies that they have 1) personally conducted a gross and/or microscopic examination of the described specimen(s), and/or personally interpreted the results of laboratory testing of the described specimen(s), and 2) personally rendered or confirmed the above diagnosis. 05/12/2020 10:08 [facility] at 1008 Clinical History Abdominal pain/screening 05/12/2020 10:08 [facility] Gross Description A. Received in [...] ROSMERY GODFREY 05/11/2020 18:23 05/12/2020 10:08 EDT [facility] Performing Lab [facility] 05/12/2020 10:08 [facility] Scanned Images 05/12/2020 10:08 T [facility] Tissue DESCENDING COLON STRUCTURE / Unknown 05/11/2020 10:52 EDT 05/11/2020 17:40 EDT Tissue specimen (specimen) DESCENDING COLON STRUCTURE / Unknown 05/11/2020 10:52 EDT 05/11/2020 17:40 EDT Yarely Dyson MD PATHOLOGY ORDERABLES [facility] [address] [place] [address] documented in this encounter Visit Diagnoses Diagnosis Encounter for screening for malignant neoplasm of colon Special screening for malignant neoplasms, colon documented in this encounter Care Teams High Density Press Operator Relationship Specialty Start Date End Date Isreal Chavarria [place] [address] PCP - General 05/11/20 documented as of this encounter
--- OUTSIDE RECORDS SUMMARY | 2024-03-14 16:03 | XMS_ITS | Encounter Summary ---
Author Organization [facility] Address [address] [place] [address] Care Team Providers Care Mine Analyst Name Role Phone Isreal Chavarria MD Primary Care Provider [phone] Encounter Details Date Type Department Care Team (Late st Contact Info) Description 07/27/2020 Lab Requisition [facility] Pathology & Laboratory Medicine - [address] [address] Awilda Denton MD [address] [place] [id number] Encounter for screening for other viral diseases [...] in accordance with CLIA regulations, [employer] (CAP) guidelines (Nov 13, 2019), and FDA guidance (Oct 25, 2019). This test is only for use under the Food and Drug Administration's Emergency Use Authorization. Swab ENTIRE NASOPHARYNX / Unknown Swab / Unknown 07/27/2020 7:05 EST 07/27/2020 22:32 EST Awilda Denton MD MICROBIOLOGY - GENER AL ORDERABLES [place], [place] * COVID-19 TESTING (07/27/2020 7:05 EST) COVID-19 rt-PCR Result NEGATIVE Negative 07/29/2020 10:50 EST [facility] Comment: 2019-novel Coronavirus (2019-nCoV) not detected [...] in accordance with CLIA regulations, [employer] (CAP) guidelines (Nov 13, 2019), and FDA guidance (Oct 25, 2019). This test is only for use under the Food and Drug Administration's Emergency Use Authorization. Performing Lab [facility] 07/29/2020 10:50 EST [facility] Swab ENTIRE NASOPHARYNX / Unknown Swab / Unknown 07/27/2020 7:05 EST 07/27/2020 22:32 EST Awilda Denton MD MICROBIOLOGY - GENER AL ORDERABLES [facility] [address] [place] [address] [facility] [place] documented in this encounter Visit Diagnoses Diagnosis Encounter for screening for other viral diseases documented in this encounter Care Teams Mine Analyst Relationship Specialty Start Date End Date Isreal Chavarria MD [place] [address] PCP - General 05/11/20 documented as of this encounter
--- OUTSIDE RECORDS SUMMARY | 2024-03-14 16:03 | XMS_ITS | Encounter Summary ---
Author Organization [facility] [place] [address] Care Team Providers Care Culinary Instructor Name Role Phone Isreal Hebert MD Primary Care Provider [phone] Encounter Details Date Type Department Care Team (Late st Contact Info) Description 06/19/2022 Interpretation Only [address] [phone] Pankaj Ching MD [address] [place] [address] [address] Social History Tobacco Use Types Packs/Day Years [...] on filedocumented in this encounter Care Teams Culinary Instructor Relationship Specialty Start Date End Date Isreal Hebert MD [address] [place] [id number] PCP - General 12/16/18 documented as of this encounter
--- OUTSIDE RECORDS SUMMARY | 2024-03-14 16:03 | XMS_ITS | Encounter Summary ---
Author Organization [facility] Address [address] [place] [address] Care Team Providers Care Gravity Prospecting Observer Name Role Phone Unavailable Primary Care Provider Unavailabl e Encounter Details Date Type Department Care Team (Late st Contact Info) Description 01/04/[address] [facility] [phone] Khai Mars, BOAT MASTER [address] [place] [address] Social History Tobacco Use Types [...] ? ALEXA PIERRE ? Accession #: ? [id number] ? : ? 1970 (Age: 44) ??F ?Collect Date: ? 01/04/2015 ? Location: ? [facility] ? Receive Date: ? 01/05/2015 ? Provider: KHAI MARS BOAT MASTER Copy to: ? Final Report SPECIMEN ADEQUACY [...] electronically signed by: ? KRYSTLE JAMES MD [facility] ? Report ??Date: 01/14/2015 11:22 HPV with Pap Test ? Date Ordered: ? 01/14/2015 ? Status: ?? Signed Out ?Date Complete: ? 01/18/2015 ? By: ??System Interface ? Date Reported: ? 01/18/2015 ? Interpretation RESULT: Negative for HPV. No E6 or E7 mRNA is detected from HPV types 16,18,31,33,35, 39,45,51,52,56,58, 59,66, and 68 by last picker mediated amplification. Comments Document reviewed and electronically signed by: ? System Interface ? Report date: 01/18/2015 By the signature above, the attending physician certifies that he/she has personally conducted a gross and/or microscopic examination of the described specimens and rendered or confirmed the above diagnosis. End of Report [facility] 01/04/2015 01/05/2015 Khai Mars NP PATHOLOGY ORDERABLES [facility] [address] [place] [address] documented in this encounter Visit Diagnoses Not on filedocumented in this encounter
--- OUTSIDE RECORDS SUMMARY | 2024-03-14 16:03 | XMS_ITS | Encounter Summary ---
Author Organization [facility] Address [address] [place] [address] Care Team Providers Care Review Consultant Name Role Phone Unavailable Primary Care Provider Unavailabl e Encounter Details Date Type Department Care Team (Late st Contact Info) Description 04/03/2011 Results Only [facility] [phone] Gaudencio Herrmann MD [address] [place] [address] Social History Tobacco Use Types Packs/Day Years [...] JANEYALEXA LOPEZ JO ? Accession #: ? [id number] ? : ? 1970 (Age: 40) ??F [...] MD PATHOLOGY ORDERABLES [facility] [address] [place] [address] documented in this encounter Visit Diagnoses Not on filedocumented in this encounter
--- OUTSIDE RECORDS SUMMARY | 2024-03-14 16:03 | XMS_ITS | Continuity of Care Document ---
Author Organization [place] - [facility] [place] [address] Care Team Providers Care Dry Cleaning Supervisor Name Role Phone VIVIANA RANDLE OTHER BERTA DE DIOS Primary Care Provider Unavailabl e Assessment Encounter Date Assessment Date Assessment LastModified by Organization Details LastModified Time 02/19/2024 02/19/2024 Moving Pantoprazole dosing to the morning and advising taking it 30-45 minutes before any food and then TUMS PRN if occasional breakthrough. LDCT: Pt is aware she needs to call and get scheduled. Not available 02/19/2024 09:29:08 Plan of Treatment Reminders Order Date Submit Date Provider Last Modified By Organization Details Last Modified Time Details Appointments Annual Wellness Exam 40 2023 08:00A M Benito De Dios Not available Not available Not available Lab None recorded. Referral None recorded. Procedures None recorded. Surgeries None recorded. Imaging None recorded. Medication Orders pantopraz ole 40 mg tablet,de layed release 2023 024 [id number], [address] [facility], [address], [place], [address], 02/19/2024 09:22:39 Patient TargetsNo targets recorded. Patient Instructions Encounter Date Encounter Id Patient Instructions Last Modified By Organization Details Last Modified Time 02/19/2024 [id number] Trial pantoprazole dosing in the morning. Call [employer] to ensure LDCT covered and get scheduled. [email or web address] Not available 02/19/2024 09:21:41 Reason for Referral General Surgeon Referral for Painless rectal bleeding Referring Physician: Berta De Dios, Family Medicine, Encounter Date: 03/11/2024 Problems Name Status Onset Date Resolution Date Notes Provider Name and Address Organization Details Recorded Time Spondylolysis of cervical spine Active [facility] 12:[facility]13 Osteoarthriti s Active 2014 [facility] 4 12:46:54 Primary focal hyperhidrosis of face Active 2014 [facility] 4 12:47:02 Cellulitis of finger Completed 201511/02/2015 Problem Code: L03.019; Problem Code Type: ICD-10; Not Available [facility] 3 03:56:02 Pain in finger of right hand Completed 201511/03/2015 Problem Code: M79.644; Problem Code Type: ICD-10; Not Available [facility] 3 03:56:02 Tobacco user Active 2015 [facility] 4 12:47:17 Adult health examination Active 2016 [facility] 4 12:45:05 Gastroesophag eal reflux disease without esophagitis Active 2016 [facility] 4 12:45:15 Screening for malignant neoplasm of breast Active 2019 [place] [facility] 4 12:47:08 History of urinary stone Active 2019 [place] [facility] 4 12:46:45 Diabetes mellitus screening Completed 201904/16/2020 Problem Code: Z13.1; Problem Code Type: ICD-10; Not Available [facility] 3 03:56:03 Abdominal pain Completed 201911/08/2023 Problem Code: R10.9; Problem Code Type: ICD-10; [address], [place], [address] , [facility] 4 08:22:26 Hidradenitis suppurativa Active 2019 ANNA MARIE flood, [facility] 4 12:45:33 Acute upper respiratory infection Completed 202201/12/2023 12/29/2022 - Comments only - Mike Ba - Patient presents with 4-5 days of congestion and chills and 1 day of sore throat interfering with swallowing. She does not report any shortness of breath, fevers, or colorful discharge. On exam, she was afebrile with O2 of 97 on RA. Pharynx was erythematous without exudate. She did have tender anterior cervical lymphadenopat hy. COVID and RSV were negative in the office today. Centor score was 1, although given the lymphadenopat hy we decided to perform a rapid strep test which was also negative. Sample was not sent for culture. This is most likely a viral URI. Recommended intranasal fluticasone 2 sprays in each nostril each morning and supportive care with tylenol or ibuprofen and warm fluids. Problem Code: J06.9; Problem Code Type: ICD-10; Not Available [facility] 3 03:56:03 Acute pharyngitis Completed 202201/12/2023 Problem Code: J02.9; Problem Code Type: ICD-10; Not Available [facility] 3 03:56:03 Essential hypertension Active 2022 ANNA MARIE flood, [facility] 4 12:45:11 Obesity Active 2022 ANNA MARIE flood, [facility] 4 12:46:50 Hemorrhoids Active 2022 ANNA MARIE flood, [facility] 4 12:45:26 Allergy to drug Completed 202211/08/2023 Problem Code: Z88.9; Problem Code Type: ICD-10; [address], [place], [address] , [facility] 4 07:34:35 Insect bite Completed 202203/05/2023 Not Available [facility] 3 03:56:04 Edema of right upper eyelid Completed 202202/21/2023 Problem Code: H02.841; Problem Code Type: ICD-10; Not Available [facility] 3 03:56:04 Generalized arthritis Completed 201405/23/2023 Not Available [facility] 3 03:56:05 Pain of right knee joint Completed 201901/23/2023 Problem Code: M25.561; Problem Code Type: ICD-10; Not Available [facility] 3 03:56:05 Urinary tract infectious disease Completed 201904/02/2020 Problem Code: N39.0; Problem Code Type: ICD-10; Not Available [facility] 3 03:56:05 Pain in thoracic spine Completed 202101/23/2023 Problem Code: M54.9; Problem Code Type: ICD-10; Not Available [facility] 3 03:56:06 Wheezing Completed 201612/17/2019 Problem Code: R06.2; Problem Code Type: ICD-10; Not Available [facility] 3 03:56:07 Primary focal hyperhidrosis Completed 201405/23/2023 Problem Code: 705.21; Problem Code Type: ICD-9; Not Available [facility] 3 03:56:07 Verruca vulgaris Completed 201712/17/2019 Problem Code: B07.9; Problem Code Type: ICD-10; Not Available [facility] 3 03:56:07 Abdominal pain Completed 201508/10/2017 Problem Code: R10.9; Problem Code Type: ICD-10; [address], [place], [address] , [facility] 4 08:22:26 Pneumonia Completed 201508/10/2017 Problem Code: J18.9; Problem Code Type: ICD-10; Not Available [facility] 3 03:56:09 Epidermoid cyst of skin Completed 201701/23/2023 Problem Code: L72.3; Problem Code Type: ICD-10; Not Available [facility] 3 03:56:09 Neck pain Completed 201405/23/2023 Not Available [facility] 3 03:56:10 Varicose veins of lower extremity Completed 202101/23/2023 Problem Code: I83.90; Problem Code Type: ICD-10; Not Available [facility] 3 03:56:11 Abdominal wall pain Completed 202311/08/2023 JILLIAN NEAL [address], [place], [address] , [facility] 4 07:34:25 Acquired melanocytic nevus Active 2023 ANNA MARIE flood, [facility] 4 12:44:55 Halo nevus Active 2023 ANNA MARIE flood, [facility] 4 12:44:55 History of adenomatous polyp of colon Active 2023 ANNA MARIE flood, [facility] 4 12:46:27 Lesion of skin of face Active [address], [place], [address] , [facility] 4 07:43:34 Abdominal pain Active 2023 Problem Code: R10.9; Problem Code Type: ICD-10; [address], [place], [address] , [facility] 4 08:22:26 Painless rectal bleeding Active 2023 JILLIAN NEAL [address], [place], [address] , [facility] 4 12:07:21 History of gastric ulcer Active 2023 Pt. reports this was about . JILLIAN NEAL [address], [facility] [address] , [facility] 4 12:12:03 Thrombocytosi s Active 2023 JILLIAN NEAL [address], [facility] [address] , [facility] 4 16:16:58 Problem Notes None recorded. Medical Equipment None Reported. Allergies No known drug allergies Medications Name Sig Start Date Stop Date Status Note LastModified by Organization Details LastModified Time cyclobenz aprine 10 mg tablet Take 1 tablet by mouth at bedtime as needed for back pain 06/02 completed Not Available Not Available Not Available gabapenti n 600 mg tablet 1TAB three times daily 2014 active Not Available Not Available Not Avai lable cetirizin e 10 mg tablet Take 1 tablet by mouth once a day as needed 10/05 completed Not Available Not Available Not Available ibuprofen 800 mg tablet 1 q6h 03/14 completed Not Available Not Available Not Available fluconazo le 150 mg tablet 1TAB NOW 01/07 completed Not Available Not Available Not Available ranitidin e 300 mg tablet TAKE 1 TABLET DAILY 05/19 completed pt needs to schedule an appt Not Available Not Available Not Available Keflex 500 mg capsule Take 1 tab by mouth three times daily 03/14 completed Not Available Not Available Not Available metronida zole 0.75 % (37.5 mg/5 gram) vaginal gel Insert nightly x5. 10/06 completed Not Available Not Available Not Available prednison e 20 mg tablet Take 2 tablet by mouth once a day for allergic reaction . 10/05 completed Not Available Not Available Not Available penicilli n V potassium 500 mg tablet 01/07 completed Not Available Not Available Not Available hydrocodo ne 10 mg-acetam inophen 325 mg tablet Take 1 tab by mouth daily as needed for pain 03/14 completed Not Available Not Available Not Available omeprazol e 40 mg capsule,d elayed release Take 1 tab by mouth daily for stomach 12/11 completed Not Available Not Available Not Available Aerochamb er MV spacer use with inhaler 2015 active Not Available Not Available Not Avai lable famotidin e 20 mg tablet Take 1 once a day 05/08 completed Not Available Not Available Not Available hydrocodo ne-acetam inophen 500-5 mg tablet 1 .qid prn pain 04/03 completed Not Available Not Available Not Available pantopraz ole 40 mg tablet,de layed release 1 tab by mouth every morning 30-45 minutes before food. active Not Available Not Available No t Available esomepraz ole magnesium 40 mg capsule,d elayed release Take 1 capsule by mouth once a day 11/07 completed Not Available Not Available Not Available prednison e 50 mg tablet one po daily x 5 days 08/30 completed Not Available Not Available Not Available gabapenti n 300 mg capsule take 1 tab three times a day 10/06 completed Not Available Not Available Not Available gabapenti n 100 mg capsule Two tab three times a day. 2014 active Not Available Not Available Not Avai lable albuterol 90 mcg/actua tion aerosol inhaler 2 PUFFS Q 4-6 hours 01/28 completed Not Available Not Available Not Available levofloxa maite 750 mg tablet one po daily x 5 days 08/10 completed Not Available Not Available Not Available celecoxib 100 mg capsule Take 1-2 capsule by mouth once a day as needed 06/07 completed Not Available Not Available Not Available amoxicill in 875 mg-potass ium clavulana te 125 mg tablet Take 1 tablet by mouth twice a day 08/30 completed Not Available Not Available Not Available clindamyc in phosphate 1 % topical solution Apply 1 as directed to skin twice a day 2022 active Not Available Not Available Not Avai lable Bactrim DS 800 mg-160 mg tablet Take 1 tab by mouth twice daily for 3 days for urine infectio n 12/23 completed Not Available Not Available Not Available cyclobenz aprine 5 mg tablet 1 tablet by mouth up to three times daily 2023 active Not Available Not Available Not Avai lable nitrofura ntoin monohydra te/macroc rystals 100 mg capsule 01/07 completed Not Available Not Available Not Available duloxetin e 30 mg capsule,d elayed release TAKE 1 CAPSULE DAILY 04/02 completed Not Available Not Available Not Available gabapenti n 100 mg tablet 1 TAB 12/15 completed Not Available Not Available Not Available famotidin e Take 20 mg daily 11/07 completed Not Available Not Available Not Available ProAir HFA 90 mcg/actua tion aerosol inhaler Inhale 1-2 puffs by mouth every 4-6 hours as needed 08/10 completed Not Available Not Available Not Available omeprazol e 20 mg tablet,de layed release Take 1 tab by mouth twice daily. 2015 active Not Available Not Available Not Avai lable diclofena c 1 % topical gel apply TID prn joint pain 2020 active Not Available Not Available Not Avai lable Vitals Date Recorded Body height Body mass index (BMI) Body weight Body temperature Oxygen saturation Oxygen saturation in Arterial blood by Pulse oximetry Heart rate Systolic blood pressure Diastolic blood pressure Provider Name and Address Organization Details Last Updated DateTime 4 154.94 cm 36.1 kg/m2 42406.8 6 g 98.4 [degF] 99 % 99 % 80 /min 130 mm[Hg] 100 mm[Hg] ELAINA HERRERA [place] [facility]. 4 09:04:06 Social History Question Answer Notes LastModified by Organizat ion Details LastModified Time Tobacco Smoking Status Current Every Day Smoker Juany Wilburn RN [facility], [facility] 01/08/2024 07:37:25 What Was The Date Of Your Most Recent Tobacco Screening? 01/08/2024 Information not available 01/08/2024 What Is Your Current Pack Years? 30ormorepack years Information not available 01/08/2024 How Much Tobacco Do You Smoke? 1 PPD Information not available 01/08/2024 Has Tobacco Cessation Counseling Been Provided? Yes Information not available 01/08/2024 On What Date Was Tobacco Cessation Counseling Provided? 01/08/2024 Information not available 01/08/2024 Do You Or Have You Ever Used Any Other Forms Of Tobacco Or Nicotine? No Information not available 01/08/2024 Sex: Female Functional Status None recorded. Mental Status None recorded. Family History Relationship Description Onset Age of this Age Resolved Age Notes Notes:*Problem: Mother: Dece ased @ age 50, waldenstroms disease Father: @ age 63 Sisters: 1 Brothers: 3 1 brother d/t [place] 2021 age 56 Children: 2, one son had heart ablation 2021 Diabetes mellitus: No Breast cancer: No Colorectal cancer: No Prostate cancer: No Alcoholism: Yes father Mental illness: No Other: No Medical History No medical history recorded. Gynecological HistoryNo gynecological history recorded. Obstetrics History GPAL:G 0 P 0 0 0 0 Immunizations Vaccine Type Date Status Provider Name and Address Organization Details Recorded Time Tdap 04/02/2020 completed Not Available [facility] 05:25:55 SARS-COV-2 (COVID-19) vaccine, UNSPECIFIED 09/15/2020 completed Not Available [facility] 07/06/2023 05:25:57 SARS-COV-2 (COVID-19) vaccine, UNSPECIFIED 01/04/2022 completed Not Available [facility] 07/06/2023 05:25:58 SARS-COV-2 (COVID-19) vaccine, UNSPECIFIED 06/16/2021 completed Not Available [facility] 07/06/2023 05:25:58 SARS-COV-2 (COVID-19) vaccine, UNSPECIFIED 08/25/2020 completed Not Available [facility] 07/06/2023 05:25:58 pneumococcal polysaccharide PPV23 04/02/2020 completed Not Available [facility] 20[facility] 05:25:59 Past Encounters Encounter ID Performer Location Encounter Start Date Encounter Closed Date Diagnosis/Indication Diagnosis SNOMED-CT Code [id number] JILLIAN NEAL [facility] [address] [address] 02/19/2024 08:42:38 02/19/2024 09:24:11 Gastroesophageal reflux disease without esophagitis [id number] Health Concerns Section Related Observation LastModified by Organization Detai ls LastModified Time None Recorded Concern Status LastModified by Organization Details LastModified Time None Recorded Payers Encounter Date Sequence Insurance Name Policy Number Policy Brewer Covered Member ID Brewer Member ID Guarantor Name 02/19/2024 1 [employer] - OPEN ACCESS PLUS [id number] Alexa Pierre [id number] Alexa Pierre Notes Date Note Type Note Provider Name and Address Organization Details Recorded Time 02/19/2024 text/html HPI Notes: Pt, 53-F, w/hx of Peptic Ulcer disease, in clinic today w/chief complaint that Pantoprazole 40 mg isn't covering her abdominal pain. She has had no EGD in > [address] Chavarria her former PCP from his 10/05/2023 visit. Pt. reports she does not want to see specialist/have procedure due to cost exposure concerns. She is taking the medication at night, sometimes not far from dinner or occasional dessert. She will have breakthrough GERD sx. by 3 pm the next day. JILLIAN NEAL [address], [place], [address], [facility]. 02/19/2024 09:30:28 OBGyn Episode No OBEpisode recorded.
--- OUTSIDE RECORDS SUMMARY | 2024-03-14 16:03 | XMS_ITS | Encounter Summary ---
Author Organization [facility] Address [address] [place] [address] Care Team Providers Care Gold Plater Name Role Phone Isreal Chavarria MD Primary Care Provider [phone] Encounter Details Date Type Department Care Team (Late st Contact Info) Description 06/15/2020 Lab Requisition [facility] Pathology & Laboratory Medicine - [address] [address] Awilda Denton MD [address] [place] [id number] Encounter for screening for other viral diseases [...] rt-PCR Result NEGATIVE Negative 06/17/2020 11:45 EDT [facility] Comment: 2019-novel Coronavirus (2019-nCoV) not [...] in accordance with CLIA regulations, [employer] (CAP) guidelines (Nov 13, 2019), and FDA guidance (Oct 25, 2019). This test is only for use under the Food and Drug Administration's Emergency Use Authorization. Swab ENTIRE NASOPHARYNX / Unknown 06/15/2020 7:10 EDT 06/15/2020 22:31 EDT Awilda Denton MD MICROBIOLOGY - GENER AL ORDERABLES [facility] [place] * COVID-19 TESTING (06/15/2020 7:10 EDT) [facility] COVID-19 rt-PCR Result NEGATIVE Negative 06/17/2020 12:20 EDT [facility] Comment: 2019-novel Coronavirus (2019-nCoV) not [...] in accordance with CLIA regulations, [employer] (CAP) guidelines (Nov 13, 2019), and FDA guidance (Oct 25, 2019). This test is only for use under the Food and Drug Administration's Emergency Use Authorization. Performing Lab [facility] 06/17/2020 12:20 EDT [facility] Swab ENTIRE NASOPHARYNX / Unknown 06/15/2020 7:10 EDT 06/15/2020 22:31 EDT Awilda Denton MD MICROBIOLOGY - GENER AL ORDERABLES [facility] [address] [place] [address] [facility] [place] documented in this encounter Visit Diagnoses Diagnosis Encounter for screening for other viral diseases documented in this encounter Care Teams Gold Plater Relationship Specialty Start Date End Date Isreal [place]ria [place] [address] [place] [address] PCP - General 05/11/20 documented as of this encounter
--- OUTSIDE RECORDS SUMMARY | 2024-03-14 16:03 | XMS_ITS | Data Portability ---
Author Organization [facility], [facility] Address [address] [place] [address] Care Team Providers Care Parent Educator Name Role Phone VIVIANA RANDLE OTHER BERTA DE DIOS Primary Care Provider Unavailabl e Assessment Encounter Date Assessment Date Assessment LastModified by Organization Details LastModified Time 10/05/2023 10/05/2023 The total time devoted to today's encounter, including both the klyp-ih-wftb time with the patient and/or family/caregive r and rgt-ztnk-uu-fac e time I personally spent is 33 minutes. Not available 10/05/2023 15:50:18 02/19/2024 02/19/2024 Moving Pantoprazole dosing to the morning and advising taking it 30-45 minutes before any food and then TUMS PRN if occasional breakthrough. LDCT: Pt is aware she needs to call and get scheduled. [email or web address] Not available 02/19/2024 09:29:08 Plan of Treatment Reminders Order Date Submit Date Provider Last Modified By Organization Details Last Modified Time Details Appointments Annual Wellness Exam 40 2023 08:00A Celeste De Dios Not available Not available Not available Lab fecal occult blood, immunoass ay, stool 2023 024 [email or web address] [facility], [address], [place], [address], 03/12/2024 09:24:38 CBC w/ auto diff - 1 SST, 1 LAV 2023 024 [facility] (Registration ), [address] [place] [address] [place], [address], 03/11/2024 16:37:05 CMP, serum or plasma 2023 024 [facility] (Registration ), [address] [place] [address] , [place], [address], 03/11/2024 17:10:20 ESR (erythroc yte sedimenta tion rate), blood [address] [facility] (Registration ), [address] [place] [address] , [place], [address], 03/11/2024 16:01:39 urinalysi s, dipstick [address], [address] , [place], [address], 03/11/2024 16:01:39 Referral general surgeon referral 2023 024 [facility], [address] [place] [address] Dr, [address], [place], [address], 03/13/2024 10:55:20 Procedures None recorded. Surgeries None recorded. Imaging LDCT, chest, for lung cancer screening - Pt. hasd 2 LDCT, Cat 1. This is for f/u. 30+pack years, current smoker, no abnormal weight loss, no hemoptysi s, chest pain, chronic cough. 2023 024 [email or web address] [facility], [address], [place], [address], 03/11/2024 12:54:38 CT, abdomen + pelvis, w/o contrast - Pt. with increasin g abdominal pain of years duration, made worse by bending over, better by applying reverse pressure over musculatu re, and also about once per month blood in stool over last 8-months per pt. recent report. No fever. Prior imaging includes: She had Abd. US of Abdomen that was unremarka ble. She had 04/21/[address] with the following :- tiny fat containin g umbilical hernia- small hiatal hernia- incidenta l 23 mm hepatic cyst- wall thickenin g of descendin g Evelia had [place] py 05/11/2020 notable for 2 small diminutiv e polyps, and melanosis coli. She is being referred to [facility] for repeat colo, but want CT abd/pel to r/o other pathology . 2023 024 [facility], [address], [place], [address], 03/12/2024 16:32:35 Medication Orders pantopraz ole 40 mg tablet,de layed release 2023 024 [email or web address] [facility], [address] [facility], [address], [place], [address], 10/05/2023 16:05:29 pantopraz ole 40 mg tablet,de layed release 2023 024 JINNY [facility], [address] [facility], [address], [place], [address], 02/19/2024 09:22:39 cyclobenz aprine 5 mg tablet 2023 JINNYCLAUDINE [facility], [address] [facility], [address], [place], [address], 03/12/2024 09:24:41 Patient TargetsNo targets recorded. Patient Instructions Encounter Date Encounter Id Patient Instructions Last Modified By Organization Details Last Modified Time 10/05/2023 [id number] I sent pantopraz ole for your stomach. If the pain persists by next month, come back you can try diclofenac 1% gel on the painful area. Not available 10/05/2023 15:42:16 11/08/2023 [id number] Follow up in 8-weeks Monitor in meantime. Concerning features would be: - The appearance of darker pigmentation or more varied pigmentation in the center. Increasing depth, more irregular in it's shape, or becomes irritated/bleeds follow up more quickly. [email or web address] Not available 11/08/2023 08:05:18 02/19/2024 [id number] Trial pantoprazo le dosing in the morning. Call [employer] to ensure LDCT covered and get scheduled. [email or web address] Not available 02/19/2024 09:21:41 03/11/2024 [id number] Continue miralax . trial of cyclobenzaprine Trial of Tylenol 500-1000 mg up to 4x/day. Don't go over 4,000 mg in a day. [email or web address] Not available 03/11/2024 12:18:58 Reason for Referral General Surgeon Referral for Painless rectal bleeding Referring Physician: Berta De Dios, Family Medicine, Encounter Date: 03/11/2024 Results Created Date Observation Date Name Description Value Unit Range Abnormal Flag LastModifiedBy Organization Detail LastModifiedTime 11/30/19 24 12/02/2023 URINE CULTU RE urine culture Not Available [address] [place], [address] 12/02/2023 09:37:32 11/30/19 24 12/02/2023 URINE CULTU RE urine culture colon ies/m L Not Available [address] [place], [address] 12/02/2023 09:37:32 11/30/19 24 12/03/2023 URINE CULTU RE urine culture Not Available [address] [place], [address] 12/03/2023 14:11:09 11/30/19 24 12/03/2023 URINE CULTU RE urine culture colon ies/m L Not Available [address] [place], [address] 12/03/2023 14:11:09 03/11/20 24 03/11/2024 COMPL ETE BLOOD COUNT W/DIF F WBC 10.98 10_3/ uL 4.4-10 .8 high Not Available [address] [place], [address] 03/11/2024 16:37:05 03/11/20 24 03/11/2024 COMPL ETE BLOOD COUNT W/DIF F RBC 5.04 10_6/ uL 3.93-5 .22 normal Not Available [address] [place], [address] 03/11/2024 16:37:05 03/11/20 24 03/11/2024 COMPL ETE BLOOD COUNT W/DIF F HGB 15.2 g/dL 11.2-1 5.7 normal Not Available [address] [place], [address] 03/11/2024 16:37:05 03/11/20 24 03/11/2024 COMPL ETE BLOOD COUNT W/DIF F HCT 45.8 % 36.0-4 6.0 normal Not Available [address] [place], [address] 03/11/2024 16:37:05 03/11/20 24 03/11/2024 COMPL ETE BLOOD COUNT W/DIF F MCV 91 fL 80-95 normal Not Available [address] [place], [address] 03/11/2024 16:37:05 03/11/20 24 03/11/2024 COMPL ETE BLOOD COUNT W/DIF F MCH 30.2 pg 27.0-3 3.0 normal Not Available [address] [place], [address] 03/11/2024 16:37:05 03/11/20 24 03/11/2024 COMPL ETE BLOOD COUNT W/DIF F MCHC 33.2 % 32.0-3 6.0 normal Not Available [address] [place], [address] 03/11/2024 16:37:05 03/11/20 24 03/11/2024 COMPL ETE BLOOD COUNT W/DIF F RDW 14.7 % 11.7-1 4.6 high Not Available [address] [place], [address] 03/11/2024 16:37:05 03/11/20 24 03/11/2024 COMPL ETE BLOOD COUNT W/DIF F platelet count 454 10_3/ uL 130-40 0 high Not Available [address] [place], [address] 03/11/2024 16:37:05 03/11/20 24 03/11/2024 COMPL ETE BLOOD COUNT W/DIF F MPV 9.3 fL 8.0-11 .0 normal Not Available [address] [place], [address] 03/11/2024 16:37:05 03/11/20 24 03/11/2024 COMPL ETE BLOOD COUNT W/DIF F neutrophils % 59.8 % Not Available [address] [place], [address] 03/11/2024 16:37:05 03/11/20 24 03/11/2024 COMPL ETE BLOOD COUNT W/DIF F lymphocytes % 31.1 % Not Available [address] [place], [address] 03/11/2024 16:37:05 03/11/20 24 03/11/2024 COMPL ETE BLOOD COUNT W/DIF F monocytes % 5.8 % Not Available [address] [place], [address] 03/11/2024 16:37:05 03/11/20 24 03/11/2024 COMPL ETE BLOOD COUNT W/DIF F eosinophils % 2.3 % Not Available [address] [place], [address] 03/11/2024 16:37:05 03/11/20 24 03/11/2024 COMPL ETE BLOOD COUNT W/DIF F basophils % 0.5 % Not Available [address] [place], [address] 03/11/2024 16:37:05 03/11/20 24 03/11/2024 COMPL ETE BLOOD COUNT W/DIF F immature grans % 0.5 % Not Available [address] [place], [address] 03/11/2024 16:37:05 03/11/20 24 03/11/2024 COMPL ETE BLOOD COUNT W/DIF F nucleated RBC 0.0 % 0.0-0. 3 normal Not Available [address] [place], [address] 03/11/2024 16:37:05 03/11/20 24 03/11/2024 COMPL ETE BLOOD COUNT W/DIF F absolute neutrophil count 6.57 10_3/ uL 1.2-6. 7 normal Not Available [address] [place], [address] 03/11/2024 16:37:05 03/11/20 24 03/11/2024 COMPL ETE BLOOD COUNT W/DIF F absolute lymphocyte count 3.41 10_3/ uL 1.2-3. 4 high Not Available [address] [place], [address] 03/11/2024 16:37:05 03/11/20 24 03/11/2024 COMPL ETE BLOOD COUNT W/DIF F absolute monocyte count 0.64 10_3/ uL 0.1-0. 8 normal Not Available [address] [place], [address] 03/11/2024 16:37:05 03/11/20 24 03/11/2024 COMPL ETE BLOOD COUNT W/DIF F absolute eosinophil count 0.25 10_3/ uL 0.0-0. 7 normal Not Available [address] [place], [address] 03/11/2024 16:37:05 03/11/20 24 03/11/2024 COMPL ETE BLOOD COUNT W/DIF F absolute basophil count 0.05 10_3/ uL 0.0-0. 2 normal Not Available [address] [place], [address] 03/11/2024 16:37:05 03/11/20 24 03/11/2024 urina lysis , dipst ick pH 6.5 Not Available [facility] [address] [place], [address], 03/11/2024 12:10:21 03/11/20 24 03/11/2024 urina lysis , dipst ick Specific Thrall 1.010 Not Available [facility] [address], [place], [address], 03/11/2024 12:10:21 03/11/20 24 03/11/2024 urina lysis , dipst ick Leukocytes Negati ve Not Available [facility] [address], [place], [address], 03/11/2024 12:10:21 03/11/20 24 03/11/2024 urina lysis , dipst ick Nitrite negati ve Not Available [facility] [address], [place], [address], 03/11/2024 12:10:21 03/11/20 24 03/11/2024 urina lysis , dipst ick Urobilinogen .2 Not Available [facility] [address], [place], [address], 03/11/2024 12:10:21 03/11/20 24 03/11/2024 urina lysis , dipst ick Protein Negati ve Not Available [facility] [address], [place], [address], 03/11/2024 12:10:21 03/11/20 24 03/11/2024 urina lysis , dipst ick Blood Negati ve Not Available [facility] [address], [place], [address], 03/11/2024 12:10:21 03/11/20 24 03/11/2024 urina lysis , dipst ick Ketone Negati ve Not Available [facility] [address], [place], [address], 03/11/2024 12:10:21 03/11/20 24 03/11/2024 urina lysis , dipst ick Bilirubin Negati ve Not Available [facility] [address], [place], [address], 03/11/2024 12:10:21 03/11/20 24 03/11/2024 urina lysis , dipst ick Glucose Negati ve Not Available [facility] [address], [place], [address], 03/11/2024 12:10:21 03/11/20 24 03/11/2024 urina lysis , dipst ick Appearance Clear Not Available [facility] [address], [place], [address], 03/11/2024 12:10:21 03/11/20 24 03/11/2024 urina lysis , dipst ick Color Pale Yellow Not Available [facility] [address], [place], [address], 03/11/2024 12:10:21 Result Notes None recorded. Problems Name Status Onset Date Resolution Date Notes Provider Name and Address Organization Details Recorded Time Spondylolysis of cervical spine Active 2014 ANNA MARIE flood [facility] 4 12:47:13 Osteoarthriti s Active 2014 ANNA MARIE flood [facility] 4 12:46:54 Primary focal hyperhidrosis of face Active 2014 ANNA MARIE flood [facility] 4 12:47:02 Cellulitis of finger Completed 201511/02/2015 Problem Code: L03.019; Problem Code Type: ICD-10; Not Available [facility] 3 03:56:02 Pain in finger of right hand Completed 201511/03/2015 Problem Code: M79.644; Problem Code Type: ICD-10; Not Available [facility] 3 03:56:02 Tobacco user Active 2015 ANNA MARIE flood [facility] 4 12:47:17 Adult health examination Active 2016 ANNA MARIE flood [facility] 4 12:45:05 Gastroesophag eal reflux disease without esophagitis Active [facility] 12:45[facility]15 Screening for malignant neoplasm of breast Active 2019 [place] [facility] 4 12:47:08 History of urinary stone Active 2019 [place] [facility] 4 12:46:45 Diabetes mellitus screening Completed 201904/16/2020 Problem Code: Z13.1; Problem Code Type: ICD-10; Not Available [facility] 3 03:56:03 Abdominal pain Completed 201911/08/2023 Problem Code: R10.9; Problem Code Type: ICD-10; JILLIAN NEAL [address], [place], [address] , [facility] 4 08:22:26 Hidradenitis suppurativa Active 2019 [facility] 4 12:45:33 Acute upper respiratory infection Completed 202201/12/2023 12/29/2022 - Comments only - Mikeceleste Ba - Patient presents with 4-5 days [...] J06.9; Problem Code Type: ICD-10; Not Available [facility] 3 03:56:03 Acute pharyngitis Completed 202201/12/2023 Problem Code: J02.9; Problem Code Type: ICD-10; Not Available [facility] 3 03:56:03 Essential hypertension Active 2022 ANNA MARIE flood, [facility] 4 12:45:11 Obesity Active 2022 ANNA MARIE flood, [facility] 4 12:46:50 Hemorrhoids Active 2022 ANNA MARIEJani flood, [facility] 4 12:45:26 Allergy to drug Completed 202211/08/2023 Problem Code: Z88.9; Problem Code Type: ICD-10; JILLIAN NEAL [address], [place], [address] , [facility] 4 07:34:35 Insect bite Completed 202203/05/2023 Not Available [facility] 3 03:56:04 Edema of right upper eyelid Completed 202202/21/2023 Problem Code: H02.841; Problem Code Type: ICD-10; Not Available [facility] 3 03:56:04 Generalized arthritis Completed 201405/23/2023 Not Available [facility] 3 03:56:05 Pain of right knee joint Completed 201901/23/2023 Problem Code: M25.561; Problem Code Type: ICD-10; Not Available [facility] 3 03:56:05 Urinary tract infectious disease Completed 201904/02/2020 Problem Code: N39.0; Problem Code Type: ICD-10; Not Available [facility] 3 03:56:05 Pain in thoracic spine Completed 202101/23/2023 Problem Code: M54.9; Problem Code Type: ICD-10; Not Available [facility] 3 03:56:06 Wheezing Completed 201612/17/2019 Problem Code: R06.2; Problem Code Type: ICD-10; Not Available [facility] 3 03:56:07 Primary focal hyperhidrosis Completed 201405/23/2023 Problem Code: 705.21; Problem Code Type: ICD-9; Not Available [facility] 3 03:56:07 Verruca vulgaris Completed 201712/17/2019 Problem Code: B07.9; Problem Code Type: ICD-10; Not Available [facility] 3 03:56:07 Abdominal pain Completed 201508/10/2017 Problem Code: R10.9; Problem Code Type: ICD-10; [facility] [address] , [facility] 08:22:26 Pneumonia Completed 201508/10/2017 Problem Code: J18.9; Problem Code Type: ICD-10; Not Available [facility] 3 03:56:09 Epidermoid cyst of skin Completed 201701/23/2023 Problem Code: L72.3; Problem Code Type: ICD-10; Not Available [facility] 3 03:56:09 Neck pain Completed 201405/23/2023 Not Available [facility] 3 03:56:10 Varicose veins of lower extremity Completed 202101/23/2023 Problem Code: I83.90; Problem Code Type: ICD-10; Not Available [facility] 3 03:56:11 Abdominal wall pain Completed 202311/08/[address] [facility] [address] , [facility] 4 07:34:25 Acquired melanocytic nevus Active 2023 ANNA MARIE flood, [facility] 4 12:44:55 Halo nevus Active 2023 ANNA MARIE flood, [facility] 4 12:44:55 History of adenomatous polyp of colon Active 2023 ANNA MARIE flood, [facility] 4 12:46:27 Lesion of skin of face Active [address], [facility] [address] , [facility] 4 07:43:34 Abdominal pain Active 2023 Problem Code: R10.9; Problem Code Type: ICD-10; JILLIAN ENAL Dr, [facility] [address] , [facility] 4 08:22:26 Painless rectal bleeding Active [address], [facility] [address] , [facility] 4 12:07:21 History of gastric ulcer Active 2023 Pt. reports this was about 2015-. J[address] NEAL Dr, [facility] [address] , [facility] 4 12:12:03 Thrombocytosi s Active [address], [facility] [address] , [facility] 4 16:16:58 Problem Notes None recorded. [...] saturation in Arterial blood by Pulse oximetry Respiratory rate Systolic blood pressure Diastolic blood pressure Provider Name and Address Organization Details Last Updated DateTime 4 154.94 cm 36.3 kg/m2 79593.7 4 g 97.9 [degF] 95 % 95 % 16 /min 128 mm[Hg] 64 mm[Hg] ABDULAZIZ GARY RN [facility] 4 15:01:36 Date Recorded Body height Body mass index (BMI) Body weight Body temperature Oxygen saturation Oxygen saturation in Arterial blood by Pulse oximetry Heart rate Systolic blood pressure Diastolic blood pressure Provider Name and Address Organization Details Last Updated DateTime 4 154.94 cm 36.8 kg/m2 06744.5 1 g 98.1 [degF] 97 % 97 % 91 /min 132 mm[Hg] 90 mm[Hg] ELAINA HERRERA MA [facility] 4 07:39:38 Date Recorded Body height Body mass index (BMI) Body weight Body temperature Heart rate Systolic blood pressure Diastolic blood pressure Provider Name and Address Organization Details Last Updated DateTime 4 154.94 cm 36.7 kg/m2 55664.3 6 g 98.2 [degF] 84 /min 128 mm[Hg] 82 mm[Hg] Juany Wilburn RN [facility] 4 07:35:55 Date Recorded Body height Body mass index (BMI) Body weight Body temperature Oxygen saturation Oxygen saturation in Arterial blood by Pulse oximetry Heart rate Systolic blood pressure Diastolic blood pressure Provider Name and Address Organization Details Last Updated DateTime 4 154.94 cm 36.1 kg/m2 25599.8 6 g 98.4 [degF] 99 % 99 % 80 /min 130 mm[Hg] 100 mm[Hg] ELAINA HERRERA MA [facility] 4 09:04:06 Date Recorded Body height Body mass index (BMI) Body weight Body temperature Oxygen saturation Oxygen saturation in Arterial blood by Pulse oximetry Heart rate Systolic blood pressure Diastolic blood pressure Provider Name and Address Organization Details Last Updated DateTime 4 154.94 cm 36.3 kg/m2 02282.4 5 g 98.1 [degF] 98 % 98 % 94 /min 132 mm[Hg] 98 mm[Hg] ELAINA HERRERA MA [facility] 11:31:23 Social History Question Answer Notes LastModified by Organizat ion Details LastModified Time Tobacco Smoking Status Current Every Day Smoker Juany Wilburn RN [facility], [facility] 01/08/2024 07:37:25 What Was The Date Of [...] Sisters: 1 Brothers: 3 1 brother d/t [place] 2021 age 56 Children: 2, one son [...] Recorded Time Tdap 04/02/2020 completed Not Available [facility] 05:25:55 SARS-COV-2 (COVID-19) vaccine, UNSPECIFIED 09/15/2020 completed Not Available [facility] 07/06/2023 05:25:57 SARS-COV-2 (COVID-19) vaccine, UNSPECIFIED 01/04/2022 completed Not Available [facility] 07/06/2023 05:25:58 SARS-COV-2 (COVID-19) vaccine, UNSPECIFIED 06/16/2021 completed Not Available [facility] 07/06/2023 05:25:58 SARS-COV-2 (COVID-19) vaccine, UNSPECIFIED 08/25/2020 completed Not Available [facility] 07/06/2023 05:25:58 pneumococcal polysaccharide PPV23 04/02/2020 completed Not Available [facility] 2022 05:25:59 Past Encounters Encounter ID Performer Location Encounter Start Date Encounter Closed Date Diagnosis/Indication Diagnosis SNOMED-CT Code [id number] LULI CHAVARRIA MD [place] [address] [place] [address] 10/05/2023 14:46:34 10/05/2023 15:44:16 Gastroesophageal reflux disease without esophagitis 269091054 Abdominal wall pain 1620 72612 [id number] JILLIAN NEAL [place] [address] [place] [address] 11/08/2023 07:29:44 11/08/2023 08:06:34 Halo nevus 371873831 [id number] JILLIAN NEAL [place] [address] [place] [address] 01/08/2024 07:23:56 01/08/2024 08:15:53 Herpes zoster vaccination declined 3391563998491 SARS-CoV-2 mRNA vaccine declined 9822548348 Lesion of skin of face 460569561045 Halo nevus 623252262 Screening for malignant neoplasm of respiratory tract 449007929 Abdominal pain 29540402 [id number] JILLIAN NEAL [facility] [address] [place] [address] 02/19/2024 08:42:38 02/19/2024 09:24:11 Gastroesophageal reflux disease without esophagitis 555775655 [id number] JILLIAN NEAL [facility] [address] [place] [address] 03/11/2024 11:19:01 03/11/2024 14:36:46 Abdominal pain 35925666 Painless r ectal bleeding 829814541 Health Concerns Section Related Observation LastModified by Organization Detai ls LastModified Time None Recorded Concern Status LastModified by Organization Details LastModified Time None Recorded Advance Directives Directive None Recorded Payers Encounter Date Sequence Insurance Name Policy Number Policy Brewer Covered Member ID Brewer Member ID Guarantor Name 10/05/2023 1 [employer] - OPEN ACCESS PLUS [id number] Alexa Mustafa [place] [id number] Alexa Mustafa [place] 11/08/2023 1 [employer] - OPEN ACCESS PLUS [id number] Alexa Mustafa Ignacio [id number] Alexa Mustafa [place] 01/08/2024 1 [employer] - OPEN ACCESS PLUS [id number] Alexa Mustafa [place] [id number] Alexa Mustafa [place] 02/19/2024 1 [employer] - OPEN ACCESS PLUS [id number] Alexa Mustafa [place] [id number] Alexa Mustafa [place] 03/11/2024 1 [employer] - OPEN ACCESS PLUS [id number] Alexa Mustafa Ignacio [id number] Alexa Mustafa [place] Notes Date Note Type Note Provider Name and Address Organization Details Recorded Time 10/05/2023 text/html HPI Notes: She h as h/o ulcers, and for the past couple months she has had pain in the right epigastrum. Triggered by laughing and sneezing, becomes sharp, lasts for a few minutes. She had similar in past and evaluation for hernia including CT was negative. This was years ago, but recently started bothering her again. no change with eating. no n/v. No change with BM. No urinary symptoms. taking esomeprazole for h/o ulcers. avoids NSAIDs. cut coffee to 2/day. She had ulcers in the past but this doesn't feel like ulcers. LULI CHAVARRIA MD [address], [place], [address], [facility]. 10/05/2023 15:51:13 11/08/2023 text/html HPI Notes: Pt, 53-F, normally a Dr. Chavarria pt. but he is leaving the practice requesting appt. for evaluation of a brown spot growing on her face. She noticed a little brown spot a couple months ago and it has grown in both the brown spot and the white depigmented halo around it. She reports no recent life stress. She happily reports she has 3rd grand baby coming up soon. JILLIAN NEAL [address], [place], [address], [facility]. 11/08/2023 08:18:24 01/08/2024 text/html HPI Notes: Pt, 53-F, here for f/u of skin lesion thought to be halo nevus from 11/08/2023 visit. She also was having some abdominal pain on a prior visit with Dr. Chavarria, her old provider who left the practice, thought to be related to GERD. Her pantoprazole was raised to 40 mg at that time. Halo Nevus description from 11/08/2023 visit: -3/8 across the darker aspect in horizontal plane and 1/2 across white depigmented area. -There is a very small, 1-2 mm in size, palpable feature with minimal depth at the 7-o'clock position of the pigmented area right at the border of the depigmented area. There is no discernible color change on the palpable aspect itself and it is without scale. Abdominal Pain: Pt. reports no change in this. Pt. deverloped this well over a year ago. Never figured out what it was. When it flares, it can be painful for 5, 10, or 15 seconds. Pt. denies any abnormality of stool, greasy stools, dark/tarry stools. Has hemorrhoids. Pt. does report she has had an upper scope w/6-bleeding ulcer. Family Hx of Haydenenstrom's Macroglobunemia: Pt. mother had complications of this and at age 50. Smokin/2 pack to 1-pack. Had 06/12/2022 LDCT. S/P menopause > 5-eyars. Other data in light of her CPE coming up. Last Breast Cancer Screenin06/08/2023 Cat 1C, Due 05/30/2024 Cervical CA Scr: Last Pap 01/23/2023 NORMAL. Due 02/14/2028. 10-Year Smoking Risk: 8% Calculated 01/01/2023. -Cholesterol 01/23/2023: Total 189 HDL 56 LDL 118 Trig 75 Colon cancer screening: Had polyp Adenoma on 05/12/2020 Marydel. Next Marydel DUE 05/12/2027. Last Tdap 04/02/2020 Pneumococcal PPSV23 04/02/2020. Don't See PCV 13? Diabetes Screening: Hga1c 5.4% Hep C negative: 01/24/[address], [place], [address] 01/08/2024 08:23:18 02/19/2024 text/html HPI Notes: Pt, 53-F, w/hx [...] 3 pm the next day. [address], [place], [address], [facility] 02/19/2024 09:30:28 03/11/2024 text/html HPI Notes: Pt, 53-F, here with complaint of abdominal pain and blood in her stool. Abdominal Pain: Pt. with long history of this pain. She had Abd. US of Abdomen that was unremarkable. She had 04/21/[address] with the following: - tiny fat containing umbilical hernia - small hiatal hernia - incidental 23 mm hepatic cyst - wall thickening of descending colon She had Colonoscopy 05/11/2020 notable for 2 small diminutive polyps, and melanosis coli. [address], [place], [address], [place] [facility] 03/12/2024 09:25:47 OBGyn Episode No OBEpisode recorded.
--- OUTSIDE RECORDS SUMMARY | 2024-03-14 16:03 | XMS_ITS | Clinical Summary ---
[place] [address] Care Team Providers Care Certified Coding Specialist Name Role Phone Isreal Hebert MD Primary Care Provider [phone] Social History Tobacco Use Types Packs/Day Years [...] - Influenza standard series) 04/27/2024 Care Teams Certified Coding Specialist Relationship Specialty Start Date End Date Isreal Hebert MD [address] [place] [address] [place] [address] PCP - General 12/16/18
--- OUTSIDE RECORDS SUMMARY | 2024-03-14 16:03 | XMS_ITS | Encounter Summary ---
Author Organization [facility] Address [address] [place] [address] Care Team Providers Care Inspector Metal Fabricating Name Role Phone Unavailable Primary Care Provider Unavailabl e Encounter Details Date Type Department Care Team (Late st Contact Info) Description 10/20/2009 Results Only [facility] - [facility] [place] [place] [address] [place], [place] [id number] Luli Contreras MD [address] [place] [phone] Social History Tobacco Use Types Packs/Day Years [...] ? ALEXA PIERRE ? Accession #: ? [id number] ? : ? 1970 (Age: 39) ??F [...] Contreras MD PATHOLOGY ORDERABLES [facility] HAWKINS [address] [place] [address] documented in this encounter Visit Diagnoses Not on filedocumented in this encounter
--- OUTSIDE RECORDS SUMMARY | 2024-03-14 16:03 | XMS_ITS | Encounter Summary ---
Author Organization [facility] Address [address] [place] [address] Care Team Providers Care Program/Music Director Name Role Phone Thelma Cope APRN Primary Care Provider [phone] Encounter Details Date Type Department Care Team (Late st Contact Info) Description 08/10/2017 Results Only [facility] [phone] Luli Chavarria MD [address] [place] [address] [place], [place] [phone] Social History Tobacco Use Types Packs/Day Years [...] ? ALEXA PIERRE ? Accession #: ? [id number] ? : ? 1970 (Age: 47) ??F [...] types 16,18,31,33,35, 39,45,51,52,56,58, 59,66, and 68 by professional nursing tutor mediated amplification. Comments Document reviewed and electronically signed by: ? System Interface ? Report date: 08/24/2017 By the signature above, the attending physician certifies that he/she has personally conducted a gross and/or microscopic examination of the described specimens and rendered or confirmed the above diagnosis. End of Report [facility] 08/10/2017 08/13/2017 Luli Chavarria MD PATHOLOGY ORDERABLES [facility] [address] [place] [address] documented in this encounter Visit Diagnoses Not on filedocumented in this encounter Care Teams Program/Music Director Relationship Specialty Start Date End Date Thelma Cope APRN [address] [place] [address] PCP - General 05/16/16 05/10/20 documented as of this encounter
--- OUTSIDE RECORDS SUMMARY | 2024-03-14 16:03 | XMS_ITS | Encounter Summary ---
Author Organization [facility] Address [address] [place] [address] Care Team Providers Care Family Living Educator Name Role Phone Unavailable Primary Care Provider Unavailabl e Encounter Details Date Type Department Care Team (Late st Contact Info) Description 02/15/2000 Results Only [facility] [address] [place] [address] Mayra Snider PA [address] [place] [id number] Social History Tobacco Use Types Packs/Day [...] ? ALEXA PIERRE ? Accession #: ? [id number] : ? 1970 (Age: 29) ??F ?Collect [...] Mayra WALSH PATHOLOGY ORDERABLES [facility] [address] [place] [address] documented in this encounter Visit Diagnoses Not on filedocumented in this encounter
[2024-03-14 16:13] LABS: Abs Immature Grans 0.05 10^3/uL (0.0-0.06); Absolute Eosinophil Count 0.28 10^3/uL (0.0-0.7); Absolute Lymphocyte Count 2.98 10^3/uL (1.2-3.4); Absolute Neutrophil Count 6.78 10^3/uL (1.2-6.7); Basophils % 0.5 %; Eosinophils % 2.6 %; HCT 45.2 % (36.0-46.0); HGB 14.7 g/dL (11.2-15.7); Immature Grans % 0.5 %; Lymphocytes % 27.2 %; MCH 29.6 pg (27.0-33.0); MCHC 32.5 % (32.0-36.0); MCV 91 fL (80-95); MPV 9.1 fL (8.0-11.0); Monocytes % 7.3 %; Neutrophils % 61.9 %; Platelet Count 422 10^3/uL (130-400); RBC 4.96 10^6/uL (3.93-5.22); RDW 14.8 % (11.7-14.6); RDW-SD 49.2 fL; WBC 10.95 10^3/uL (4.4-10.8)
[2024-03-14 16:15] LABS: Absolute Basophil Count 0.05 10^3/uL (0.0-0.2)
[2024-03-14 17:08] LABS: Ferritin 106 ng/mL (8-252); Iron 50 ug/dL (50-170); Total Iron Binding Capacity 252 ug/dL (250-450); Transferrin Sat 20 % (15-50)
== END 2024-03-14 16:02 | disposition home or self-care (01) ==
LOC: LBO 16:01
PROVIDERS: PCP Student in an Organized Health Care Education/Training Program; Visit Provider Student in an Organized Health Care Education/Training Program
DX: D75.839 Thrombocytosis, unspecified (principal)
CPT/HCPCS: 36415; 85027; 82728; 83540; 83550; 85007; 85025

== ENCOUNTER 2025-03-02 13:30 | Outpatient (REF) | payer OTHER, SELFPAY ==
[2025-03-02 15:32] LABS: Abs Immature Grans 0.05 10^3/uL (0.0-0.06); HCT 45.0 % (36.0-46.0); HGB 14.9 g/dL (11.2-15.7); Immature Grans % 0.4 %; MCH 29.7 pg (27.0-33.0); MCHC 33.1 % (32.0-36.0); MCV 90 fL (80-95); MPV 9.3 fL (8.0-11.0); Platelet Count 444 10^3/uL (130-400); RBC 5.01 10^6/uL (3.93-5.22); RDW 14.6 % (11.7-14.6); RDW-SD 48.1 fL; WBC 11.25 10^3/uL (4.4-10.8)
[2025-03-02 15:59] LABS: TSH (W/Ref FT4) 1.72 uIU/mL (0.36-3.74)
== END 2025-03-02 13:31 | disposition home or self-care (01) ==
LOC: NCHCN 13:30
PROVIDERS: PCP Student in an Organized Health Care Education/Training Program; Visit Provider Student in an Organized Health Care Education/Training Program
DX: R00.2 Palpitations (principal)
CPT/HCPCS: 84443; 85025

== ENCOUNTER 2025-03-11 01:27 | Outpatient (CLI) | payer OTHER, SELFPAY ==
--- NOTE | 2025-03-11 07:30 | DI.US_ITS ---
APPROVED REPORT EXAM: Comprehensive 2D, Doppler, and color-flow Echocardiogram Patient Location: Out-Patient Crm Analyst: Nina Helm RDCS (AE) Indications: Systolic Murmur Other Information Study Quality: Adequate Conclusion Normal left ventricular wall thickness and chamber size. Ejection fraction 60%. Wall motion is normal Normal right ventricular size and function Both atria are normal in size There are no structural valvular abnormalities Mild aortic and mitral regurgitation Estimated right ventricular systolic pressure is 30 mmHg Ascending aorta measures 3.7 cm Wall motion Left Ventricle The left ventricle is normal size. The left ventricular systolic function is normal. The left ventricular ejection fraction is within the normal range. There is normal left ventricular wall thickness. There is normal LV segmental wall motion. There is no ventricular septal defect visualized. LVEF is 60%. Right Ventricle The right ventricle is normal size. The right ventricular systolic function is normal. Atria The left atrium size is normal. The right atrium size is normal. The interatrial septum is intact with no evidence for an atrial septal defect. Aortic Valve The aortic valve is normal in structure. Aortic valve is trileaflet. There is no aortic valvular stenosis. Mild aortic regurgitation. Mitral Valve The mitral valve is normal in structure. No evidence of mitral valve stenosis. Mild mitral regurgitation. Tricuspid Valve The tricuspid valve is normal in structure. There is no tricuspid valve stenosis. Trace tricuspid regurgitation. The RVSP is 30.0 mmHg. Pulmonic Valve The pulmonary valve is normal in structure. There is no pulmonic valvular stenosis. There is no pulmonic valvular regurgitation. Great Vessels The aortic root is normal in size. The ascending aorta is mildly dilated. Aortic arch is not well visualized. The IVC collapses <50% with inspiration. Pericardium There is no pericardial effusion. 2D Dimensions IVSD d PLAX 0.92 cm F: 0.6-1.0 Ao Root d 2.95 cm F: 2.7 - 3.3 LVPW d PLAX 0.94 cm F: 0.6 - 1.0 Ao Asc Diam d 3.70 cm F: 2.3 - 3.1 LVID d PLAX 5.00 cm F: 3.8 - 5.2 LVDs 3.32 cm F: 2.2 - 3.5 LV EF Teichholz 62.1 % FS 33.60 % LV EDV (Teich) 118.3 mL LV ESV (Teich) 44.8 mL M-Mode TAPSE 2.77 cm (M/F) >1.7 Auto EF LV EDV A4C 112.7 mL LV EDV A2C 106.5 mL LV EDV BP 109.4 mL LV ESV A4C 45.3 mL LV ESV A2C 41.2 mL LV ESV BP 42.9 mL LVEF(%) A4C 59.8 % LVEF(%) A2C 61.3 % LVEF(%) BP 60.8 % LV SV A4C 67.4 ml LV SV A2C 65.3 ml LV SV BP 66.5 ml LV CO A4C 4.1 L/min LV CO A2C 3.9 L/min LV CO BP 4.0 L/min HR A4C 60.61 BPM HR A2C 59.41 BPM LV EDV Index (BP) LA Volume LA Length A4C 5.1 cm LA Length A2C 4.6 cm LA Area A4C s 18.17 cm2 LA Area A2C s 15.78 cm2 LA Vol A4C A-L 55.19 mL LA Vol A2C A-L 45.85 mL LA Vol Biplane A-L 52.8 mL LA Vol/BSA A4C A-L LA Vol/BSA A2C A-L LA Vol/BSA BP A-L 29.2 mL/m2 LA Vol A4C MOD 50.9 mL LA Vol A2C MOD 43.1 mL LA Vol BP MOD 49.1 mL RA Volume RA Area A4C 10.7 cm2 RA ESV A4C (A-L) 25.0mL RA Vol/BSA A4C A-L RA Length A4C 3.9 cm RA ESV A4C (MOD) 23.2mL LV Diastology MV E' lateral 0.087 (>0.1 m/s) MV E Vmax 1.13 (0.4-1.3 m/s) MV E/E' LAT 13.01 (<14) MV A Vmax 1.00 (0.4-1.3 m/s) E/A Ratio 1.1 Aortic Valve AoV Vmax 1.76 m/s LVOT Vmax 1.35 m/s AoV Peak Grad 51.4 mmHg LVOT Peak Grad 7.3 mmHg AoV Area (Vmax) 2.06 cm2 LVOT VTI 0.292 m AoV VTI 0.427 m LVOT Mean Grad 4.0 mmHg AoV Mean Rolf. 1.17 m/s LVOT SV 77.94 mL AoV Mean Grad 6.3 mmHg LVOT Diam s 1.80 cm AoV Area (VTI) 1.83 cm2 AV Regurg Peak Gr. 12.33 mmHg Velocity Ratio 0.77 AR Decel Thomas 1.7m/sec2 AR DT 2774 msec AR PHT 804 msec AR Vmax 4.76 m/s Mitral Valve MV DT 190 (160-240 msec) MV Vmax TIPS 1.18 m/s MV Mean Grad 2.7 (<2mmHg) MV VTI 0.378 m Pulmonary Valve PV Vmax 1.03 (0.5-1.5 m/s) RVOT Vmax 0.85 m/s PV Peak Grad 4.3 mmHg RVOT Peak Gr. 2.9 mmHg PV Mean Rolf 0.75 m/s RVOT VTI 0.200 m PV Mean Grad 2.6 mmHg RVOT Mean Gr. 1.8 mmHg Tricuspid Valve RA Pressure 8.00 mmHg TR Vmax 2.34 m/s TV S' 0.14 m/s TR Peak Grad 21.9 mmHg RVSP (TR) 30.0 mmHg
== END 2025-03-11 01:47 ==
PROVIDERS: PCP Student in an Organized Health Care Education/Training Program; Visit Provider Internal Medicine Cardiovascular Disease
DX: I08.0 Rheumatic disorders of both mitral and aortic valves (principal); R01.1 Cardiac murmur, unspecified
CPT/HCPCS: 93306

== ENCOUNTER 2025-03-20 09:56 | Outpatient (REF) | payer OTHER, SELFPAY ==
[2025-03-20 15:55] LABS: Anion Gap 6.5 mmol/L (3-11); BUN 15 mg/dL (7-18); CO2 29.5 mmol/L (21.0-32.0); Calcium 9.8 mg/dL (8.5-10.1); Chloride 104 mmol/L (98-107); Estimated GFR 101.44 (mL/min/1.73m2); Glucose 87 mg/dL (74-106); Potassium 5.0 mmol/L (3.5-5.1); Sodium 140 mmol/L (136-145)
== END 2025-03-20 09:57 | disposition home or self-care (01) ==
LOC: NCHCN 09:56
PROVIDERS: PCP Student in an Organized Health Care Education/Training Program; Visit Provider Student in an Organized Health Care Education/Training Program
DX: I10 Essential (primary) hypertension (principal)
CPT/HCPCS: 80048